=== PATIENT | male | born 1940 | race Caucasian/White ===

== ENCOUNTER 2017-01-18 07:16 | Inpatient (IN) | payer OTHER, BC ==
--- NOTE | 2017-01-18 08:05 | PDOC ---
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 Pain is continuouns, waxing and waning, sometimes 10/10, radiating from R flank to R groin. He has associated mild dysuria and frequency. He denies hematuria, f/c, rigors, pelvic pain. He visited [facility] where he had blood work and UA done, had leukocytosis of 12.5, creat 1.9 (baseline 0.9) was told its either UTI or kidney stone and dcd on Levaquin 500d x 5 days. He took 4 doses so far and has seen only transient, minimal improvement in symptoms. He denies abd pain, diarrhea, chest pain, cough, sob, h/a. He has been constipated for 4 days. 01/18/17 08:41 PCP: Dr Torsten Bledsoe Cardio: Dr Gasca Urologist: Dr Gusman (seen only once, has not come back) 01/18/17 08:49 01/18/17 08:55 01/18/17 09:27 01/18/17 10:34 01/18/17 10:49 Past History - Past Medical History Allergies/Adverse Reactions: Allergies Allergy/AdvReac Type Severity Reaction Status Date / Time No Known Allergies Allergy Verified 01/18/17 07:31 Home Medications: Ambulatory Orders Atorvastatin Ca [Lipitor] 40 mg PO HS #0 tablet 10/21/11 Enalapril/Hydrochlorothiazide [Enalapril-Hctz 10-25 mg Tablet] 1 each PO DAILY # 0 tablet 10/21/11 Glipizide [Glucotrol -] 5 mg PO BID@4257,0673 #0 tablet 10/21/11 Metformin HCl [Glucophage] 500 mg PO BIDAC #0 tablet 10/21/11 Sitagliptin Phosphate [Januvia] 100 mg PO DAILY #0 tablet 10/21/11 Diabetes: Yes (niddm) HTN: Yes - Psycho/Social/Smoking Cessation Hx Anxiety: No Suicidal Ideation: No Smoking Status: Yes Smoking History: Current some day smoker Have you smoked in the past 12 months: Yes Number of Cigarettes Smoked Daily: 0 Cigars Per Day: 1 Information on smoking cessation initiated: Yes 'Breaking Loose' booklet given: 01/18/17 Hx Alcohol Use: No Drug/Substance Use Hx: No Substance Use Type: None Review of Systems - Review of Systems Able to Perform ROS?: Yes Is the patient limited Ukrainian proficient: No Constitutional: No: Chills, Fever, Weakness HEENTM: No: Nose Congestion, Throat Pain Respiratory: No: Cough, Orthopnea, Shortness of Breath Cardiac (ROS): No: Chest Pain, Edema, Lightheadedness, Palpitations, Syncope ABD/GI: Yes: Constipated, Poor Appetite. No: Abdominal Distended, Diarrhea, Difficulty Swallowing, Nausea, Poor Fluid Intake, Rectal Bleeding, Vomiting, Abdominal cramping, Tarry Stools : Yes: Burning, Dysuria, Frequency, Flank Pain (R). No: Discharge, Incontinence, Urgency, Testicular Swelling, Lesions, Testicular Pain Musculoskeletal: No: Back Pain, Gout, Joint Pain Integumentary: No: Bruising, Rash, Sweating Neurological: No: Headache, Numbness, Paresthesia Psychiatric: No: Anxiety, Depression Endocrine: No: Change in Weight Hematologic/Lymphatic: No: Anemia, Blood Clots, Easy Bleeding, Easy Bruising All Other Systems: Reviewed and Negative *Physical Exam - Vital Signs Last Vital Signs Temp Pulse Resp BP Pulse Ox 98.5 F 78 18 113/72 100 01/18/17 07:32 01/18/17 07:32 01/18/17 07:32 01/18/17 07:32 01/18/17 07:32 - Physical Exam Comments: 01/18/17 09:55 GENERAL: NAD, AAOx3 HEENT: PERRLA EOMI Sclear anicteric CV: RRR S1S2 Pulm: CTA b/l GI, obese, soft, nontender, nondistended, no mass : R flank pain. no pelvic pain Neuro CN II-XII grossly intact Musculoskeletal: no peripheral edema 01/18/17 10:34 ED Treatment Course - LABORATORY CBC & Chemistry Diagram: 01/18/17 09:00 01/18/17 09:00 Medical Decision Making - Medical Decision Making 01/18/17 10:48 Patient presents with clinical picture most consistent with renal colic, possible UTI. studies from acute care visit on Sat consistent with ARTI, possibly post renal, obstructive Bedside US R kidney shows large fluid filled cyst with no vascular flow. CBC diff, cmp, ua, urine culture, spiral CT, 1L NS IVF, morphine Labs show no leukocytosis with mild eosinophilia, AKA creat 1.8 similar to sat result, UA consistent with infection or inflammation Spiral CT shown staghorn calculus in L kidney, hydronephrosis in L kidney, hypodensities in both kidneys. Hypodenes mass in pancrease tail. 8 mm stone in R distal ureter. b/l perirenal stranding, mildly thickened bladder wall start zosyn IV Admit to hospitalist 01/18/17 10:49 01/18/17 11:06 *DC/Admit/Observation/Transfer Diagnosis at time of Disposition: Obstruction of kidney, ARTI (acute kidney injury) UTI (urinary tract infection) Qualifiers: Urinary tract infection type: site unspecified Hematuria presence: without hematuria Qualified Code(s): N39.0 - Urinary tract infection, site not specified Abdominal mass Qualifiers: Abdominal location: other location Qualified Code(s): R19.09 - Other intra- abdominal and pelvic swelling, mass and lump - Discharge Dispostion Admit: Yes - Referrals Referrals: Torsten Bledsoe MD [Primary Care Provider] -
[2017-01-18] MEDS ORDERED: KETOROLAC TROMETHAMINE 10 MG TABLET PO ONE (08:48)
[2017-01-18] MEDS ORDERED: TAMSULOSIN HCL 0.4 MG CAP.ER.24H (FP) PO ONE (08:55)
[2017-01-18] MEDS ORDERED: SODIUM CHLORIDE 1,000 ML IV STA (08:56)
[2017-01-18] MEDS ORDERED: morphine CARPU-JECT 2 MG/1 ML DISP.SYRIN IVPUSH ONE (09:05)
[2017-01-18 09:08] LABS: BASOPHIL 0.6 % (0-2.0); EOSINOPHIL 5.4 % (0-4.5); MCH 29.8 pg (25.7-33.7); MCHC 33.7 g/dl (32.0-35.9); MEAN CELL VOLUME 88.6 fl (80-96); MEAN PLT VOLUME 7.3 fl (7.5-11.1); PLATELET COUNT 211 K/MM3 (134-434); RDW 13.8 % (11.9-15.9); WHITE BLOOD COUNT 7.9 K/mm3 (4.0-10.0)
[2017-01-18] MEDS ORDERED: morphine CARPU-JECT 2 MG/1 ML DISP.SYRIN ONE (09:08)
--- NOTE | 2017-01-18 09:10 | PDOC ---
Attending Attestation - Resident Resident Name: Vera Rivas - ED Attending Attestation I have performed the following: I have examined & evaluated the patient, The case was reviewed & discussed with the resident, I agree w/resident's findings & plan, Exceptions are as noted - HPI HPI: 01/18/17 09:08 76-year-old male with history of hypertension, hyperlipidemia, diabetes, stroke , coronary disease, kidney stones presents with right flank pain for 6 days. Patient reports is intermittent and causes discomfort. Has been complaining about some mild frequency and dysuria. Went to an urgent care 2 days ago and had bloods drawn which demonstrated white count 12 and acute renal sufficiency of 1.9. Denies fevers. Came to the ED for further evaluation. - Physicial Exam PE: 01/18/17 09:09 GENERAL: Awake, alert, and fully oriented, in no acute distress. HEAD: No signs of trauma EYES: PERRLA, EOMI, sclera anicteric, conjunctiva clear ENT: Auricles normal inspection, hearing grossly normal, nares patent, oropharynx clear without exudates. NECK: Normal ROM, supple, no lymphadenopathy, JVD, or masses LUNGS: Breath sounds equal, clear to auscultation bilaterally. No wheezes, and no crackles HEART: Regular rate and rhythm, normal S1 and S2, no murmurs, rubs or gallops ABDOMEN: Soft, nontender, normoactive bowel sounds. No guarding, no rebound. No masses Mild R sided CVA tenderness. EXTREMITIES: Normal range of motion, no edema. No clubbing or cyanosis. No cords, erythema, or tenderness NEUROLOGICAL: Cranial nerves II through XII grossly intact. Normal speech, normal gait SKIN: Warm, Dry, normal turgor, no rashes or lesions noted. - Medical Decision Making 01/18/17 09:09 Differential includes renal colic, pyelonephritis. We'll obtain labs, urinalysis. We'll need to touch base with patient's primary care physician in regards to patient's acute renal insufficiency. Give IV hydration and reassess. <Ruperto Casarez - Last Filed: 01/18/17 09:46> - Medical Decision Making 01/18/17 11:15 Case discussed with Urologist, Dr. Gusman. <Rhiannon Adan - Last Filed: 01/18/17 11:15> Heart Score/ECG Review #1 ECG reviewed & interpreted by me at: 09:45 01/18/17 09:50 NSR 70, LAFB, LVH, no std/jose, QTC 442 msec <Ruperto Casarez - Last Filed: 01/18/17 09:46>
[2017-01-18 09:23] LABS: URINE APPEARANCE TURBID; URINE BILIRUBIN NEGATIVE (NEGATIVE); URINE COLOR YELLOW; URINE GLUCOSE (UA) NEGATIVE (NEGATIVE); URINE KETONE NEGATIVE (NEGATIVE); URINE NITRITE NEGATIVE (NEGATIVE); URINE UROBILINOGEN NEGATIVE E.U./dl (0.2-1.0)
[2017-01-18 09:27] LABS: URINE BLOOD 1+ (NEGATIVE); URINE LEUK ESTERASE 2+ (NEGATIVE); URINE PROTEIN 2+ (NEGATIVE)
[2017-01-18 09:28] LABS: URINE BACTERIA FEW /hpf (NONE SEEN); URINE RBC 18 /hpf (0-3); URINE WBC 3327 /hpf (3-5)
[2017-01-18 09:32] LABS: ALBUMIN 2.8 g/dl (3.4-5.0); ANION GAP 12 (8-16); CALCIUM 8.8 mg/dL (8.5-10.1); CO2 22 mmol/L (21-32); CREATININE 1.8 mg/dL (0.7-1.3); GLUCOSE,RANDOM 108 mg/dL (74-106); SGOT/AST 32 U/L (15-37); SGPT/ALT 48 U/L (12-78)
[2017-01-18 09:33] LABS: ALK PHOS 115 U/L (45-117); BILIRUBIN,TOTAL 0.5 mg/dL (0.2-1.0); TOT PROT 6.8 g/dl (6.4-8.2)
[2017-01-18] MEDS ORDERED: PIPERACILLIN/TAZOB 3.375 GM 3.375 GM in DEXTROSE 5%-WATER - 50 ML IVPB ONE (10:27)
--- NOTE | 2017-01-18 10:52 | PDOC ---
*Physical Exam - Vital Signs Last Vital Signs Temp Pulse Resp BP Pulse Ox 98.5 F 78 18 113/72 100 01/18/17 07:32 01/18/17 07:32 01/18/17 07:32 01/18/17 07:32 01/18/17 07:32 Heart Score/ECG Review #1 ECG reviewed & interpreted by me at: 09:45 01/18/17 11:52 NSR 70, LAFB, +LVH, no std/jose, QRS 116 msec, QTC 442 msec ED Treatment Course - LABORATORY CBC & Chemistry Diagram: 01/18/17 09:00 01/18/17 09:00 - ADDITIONAL ORDERS Additional order review: Laboratory Results 01/18/17 01/18/17 09:00 09:00 Sodium 141 Potassium 4.1 Chloride 107 Carbon Dioxide 22 Anion Gap 12 BUN 34 H D Creatinine 1.8 H D Creat Clearance w eGFR 36.97 Random Glucose 108 H D Calcium 8.8 Total Bilirubin 0.5 D AST 32 D ALT 48 Alkaline Phosphatase 115 D Total Protein 6.8 Albumin 2.8 L D Urine Color Yellow Urine Appearance Turbid Urine pH 5.0 Urine Protein 2+ H Urine Glucose (UA) Negative Urine Ketones Negative Urine Blood 1+ H Urine Nitrite Negative Urine Bilirubin Negative Urine Urobilinogen Negative Ur Leukocyte Esterase 2+ H Urine RBC 18 Urine WBC 3327 Urine Bacteria Few 01/18/17 09:00 RBC 4.17 MCV 88.6 MCHC 33.7 RDW 13.8 MPV 7.3 L D Neutrophils % 62.0 Lymphocytes % 23.5 D Monocytes % 8.5 Eosinophils % 5.4 H Basophils % 0.6 - Medications Given in the ED: ED Medications Discontinued Medications Generic Name Dose Route Start Last Admin Trade Name Freq PRN Reason Stop Dose Admin Sodium Chloride 1,000 mls @ 1,000 mls/hr 01/18/17 08:56 01/18/17 09:14 Normal Saline - IV 01/18/17 09:55 1,000 mls/hr ASDIR STA Administration Ketorolac Tromethamine 10 mg 01/18/17 08:48 01/18/17 09:08 Toradol PO 01/18/17 08:49 Not Given ONCE ONE Morphine Sulfate 2 mg 01/18/17 09:05 01/18/17 09:14 Morphine Injection - IVPUSH 01/18/17 09:06 2 mg ONCE ONE Administration Tamsulosin HCl 0.8 mg 01/18/17 08:55 01/18/17 09:08 Flomax - PO 01/18/17 08:56 Not Given ONCE ONE Medical Decision Making - Medical Decision Making 01/18/17 10:53 CT scan shows: Hydronephrosis and calculi. Hypodense mass concerning for malignancy. CBC, BMP 01/18/17 09:00 01/18/17 09:00 CMP Sodium 141 mmol/L (136-145) 01/18/17 09:00 Potassium 4.1 mmol/L (3.5-5.1) 01/18/17 09:00 Chloride 107 mmol/L (98-107) 01/18/17 09:00 Carbon Dioxide 22 mmol/L (21-32) 01/18/17 09:00 Anion Gap 12 (8-16) 01/18/17 09:00 BUN 34 mg/dL (7-18) H D 01/18/17 09:00 Creatinine 1.8 mg/dL (0.7-1.3) H D 01/18/17 09:00 Creat Clearance w eGFR 36.97 (>60) 01/18/17 09:00 Random Glucose 108 mg/dL (74-106) H D 01/18/17 09:00 Calcium 8.8 mg/dL (8.5-10.1) 01/18/17 09:00 Total Bilirubin 0.5 mg/dL (0.2-1.0) D 01/18/17 09:00 AST 32 U/L (15-37) D 01/18/17 09:00 ALT 48 U/L (12-78) 01/18/17 09:00 Alkaline Phosphatase 115 U/L (45-117) D 01/18/17 09:00 Total Protein 6.8 g/dl (6.4-8.2) 01/18/17 09:00 Albumin 2.8 g/dl (3.4-5.0) L D 01/18/17 09:00 Urine Test Results Urine Color Yellow 01/18/17 09:00 Urine Appearance Turbid 01/18/17 09:00 Urine pH 5.0 (5.0-8.0) 01/18/17 09:00 Urine Protein 2+ (NEGATIVE) H 01/18/17 09:00 Urine Glucose (UA) Negative (NEGATIVE) 01/18/17 09:00 Urine Ketones Negative (NEGATIVE) 01/18/17 09:00 Urine Blood 1+ (NEGATIVE) H 01/18/17 09:00 Urine Nitrite Negative (NEGATIVE) 01/18/17 09:00 Urine Bilirubin Negative (NEGATIVE) 01/18/17 09:00 Ur Leukocyte Esterase 2+ (NEGATIVE) H 01/18/17 09:00 Urine RBC 18 /hpf (0-3) 01/18/17 09:00 Urine WBC 3327 /hpf (3-5) 01/18/17 09:00 Urine Bacteria Few /hpf (NONE SEEN) 01/18/17 09:00 Findings are concerning for obstructed infected kidney stone. Zosyn ordered. Dr. Naseem artis. Pt will need to have a cancer workup. Case discussed with caity. Admitted under med/surg admission. *DC/Admit/Observation/Transfer Diagnosis at time of Disposition: Obstruction of kidney, ARTI (acute kidney injury) UTI (urinary tract infection) Qualifiers: Urinary tract infection type: site unspecified Hematuria presence: without hematuria Qualified Code(s): N39.0 - Urinary tract infection, site not specified Abdominal mass Qualifiers: Abdominal location: other location Qualified Code(s): R19.09 - Other intra- abdominal and pelvic swelling, mass and lump - Discharge Dispostion Admit: Yes - Referrals Referrals: Torsten Bledsoe MD [Primary Care Provider] - - Patient Instructions - Post Discharge Activity
[2017-01-18] MEDS ORDERED: PIPERACILLIN/TAZOB 3.375 GM 50 ML IVPB ONE (11:41)
[2017-01-18] MEDS ORDERED: morphine CARPU-JECT 2 MG/1 ML DISP.SYRIN IVPUSH PRN (12:10)
[2017-01-18] MEDS: HEPARIN NA (PORCINE) 5,000 UNITS/ML 1ML VIAL SQ SCH ×2 (12:38→22:51)
[2017-01-18] MEDS ORDERED: HEPARIN NA (PORCINE) 5,000 UNITS/ML 1ML VIAL ONE (12:41)
--- NOTE | 2017-01-18 13:49 | HP ---
Admitting History and Physical - Primary Care Physician PCP: Torsten Bledsoe - Admission Chief Complaint: R flank pain History of Present Illness: This 76 year old male with PMH of nephrolitiasis (1979, possibly staghorn, untreated), HTN, DM II, CAD, CVA presented to the ED with R flank pain for ~ one week. He stated he has noted incontinence and going often. Recently, seen at an [facility], he was diagnosed with UTI vs kidney stone, given levaquin for which he took 4 days work and minimal relief of symptoms. 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 Cardiovascular: Yes: CAD, HTN Renal/: Yes: Renal Calculi Endocrine: Yes: Diabetes Mellitus - Smoking History Smoking history: Current some day smoker Have you smoked in the past 12 months: Yes Aproximately how many cigarettes per day: 0 - Alcohol/Substance Use Hx Alcohol Use: No - Social History Usual Living Arrangement: Yes: With Spouse ADL: Independent Home Medications - Allergies Allergies/Adverse Reactions: Allergies Allergy/AdvReac Type Severity Reaction Status Date / Time No Known Allergies Allergy Verified 01/18/17 07:31 - Home Medications Home Medications: Ambulatory Orders Aspirin [ASA -] 81 mg PO DAILY 01/18/17 Atorvastatin Ca [Lipitor] 20 mg PO DAILY 01/18/17 Glipizide [Glipizide ER] 5 mg PO DAILY 01/18/17 Lisinopril [Prinivil] 0 mg PO DAILY 01/18/17 Metformin HCl [Metformin HCl ER] 500 mg PO BID 01/18/17 Metoprolol Succinate [Toprol Xl] 12.5 mg PO DAILY 01/18/17 Review of Systems - Review of Systems Constitutional: reports: No Symptoms Eyes: reports: No Symptoms HENT: reports: No Symptoms Neck: reports: No Symptoms Cardiovascular: reports: No Symptoms Respiratory: reports: No Symptoms Gastrointestinal: reports: No Symptoms Genitourinary: reports: Dysuria, Frequency, Incontinence Musculoskeletal: reports: No Symptoms Integumentary: reports: No Symptoms Neurological: reports: No Symptoms Endocrine: reports: No Symptoms Hematology/Lymphatic: reports: No Symptoms Psychiatric: reports: No Symptoms Physical Examination Vital Signs: Vital Signs Temperature 98.5 F 01/18/17 07:32 Pulse Rate 78 01/18/17 11:51 Respiratory Rate 20 01/18/17 11:51 Blood Pressure 121/74 01/18/17 11:51 O2 Sat by Pulse Oximetry (%) 99 01/18/17 11:51 Constitutional: Yes: Well Nourished Eyes: Yes: WNL HENT: Yes: Atraumatic Neck: Yes: Supple Cardiovascular: Yes: Regular Rate and Rhythm, S1, S2 Respiratory: Yes: CTA Bilaterally Gastrointestinal: Yes: Normal Bowel Sounds, Soft, Abdomen, Obese Renal/: Yes: CVA Tenderness - Right, Incontinence Musculoskeletal: Yes: WNL Extremities: Yes: WNL Edema: No Peripheral Pulses WNL: Yes Neurological: Yes: Alert, Oriented, Cran Nerves II-XII Intact Psychiatric: Yes: WNL Imaging - Results Cat Scan: Report Reviewed Problem List - Problems (1) ARTI (acute kidney injury) Code(s): N17.9 - ACUTE KIDNEY FAILURE, UNSPECIFIED (2) UTI (urinary tract infection) Code(s): N39.0 - URINARY TRACT INFECTION, SITE NOT SPECIFIED Qualifiers: Urinary tract infection type: site unspecified Hematuria presence: without hematuria Qualified Code(s): N39.0 - Urinary tract infection, site not specified (3) Nephrolithiasis Code(s): N20.0 - CALCULUS OF KIDNEY (4) Lesion of pancreas Code(s): K86.9 - DISEASE OF PANCREAS, UNSPECIFIED (5) Renal mass, left Code(s): N28.89 - OTHER SPECIFIED DISORDERS OF KIDNEY AND URETER (6) HTN (hypertension) Code(s): I10 - ESSENTIAL (PRIMARY) HYPERTENSION (7) Diabetes mellitus Code(s): E11.9 - TYPE 2 DIABETES MELLITUS WITHOUT COMPLICATIONS (8) CAD (coronary artery disease) Code(s): I25.10 - ATHSCL HEART DISEASE OF [place] CORONARY ARTERY W/O ANG PCTRS Assessment/Plan Assessment: 76 year old male admitted with right flank pain and UTI, found to have renal mass and pancreatic tail lesion Plan: 1. UTI - Urine cx pending - Failed levaquin - Zosyn x1 dose in ED - Continue ceftriaxone daily, await sensitivities 2. ARTI - Possible due to obstructing L renal mass vs infection - Hold nephrotoxic agents, NSAIDS etc - Hold enalapril/HCTZ - Trial gentle fluids - Urine studies - Nephrology consulted 3. L renal mass - Obtain Renal/ blader US - Urology consulted 4. L Nephrolithiasis with hydro - See above - Cont fluids, will likely need intervention 5. Pancreatic tail lesion - Will need Abd MRI w/wo contrast with MRCP, may not be able to give contrast, will d/w renal and IR - CEA, Ca 19-9 - GI consulted 6. HTN - Hold HCTZ/enalapril - Give Labetalol as needed 7. Constipation - Start bowel regimen 8. PPx - DVT: heparin sq - Renal diet Visit type - Emergency Visit Emergency Visit: Yes ED Registration Date: 01/18/17 Care time: The patient presented to the Emergency Department on the above date and was hospitalized for further evaluation of their emergent condition. - New Patient This patient is new to me today: Yes Date on this admission: 01/19/17 - Critical Care Critical Care patient: No
--- NOTE | 2017-01-18 14:02 | EKG ---
Test Reason : Blood Pressure : / mmHG Vent. Rate : 070 BPM Atrial Rate : 070 BPM P-R Int : 198 ms QRS Dur : 116 ms QT Int : 410 ms P-R-T Axes : 075 -52 004 degrees QTc Int : 442 ms NORMAL SINUS RHYTHM LEFT ANTERIOR FASCICULAR BLOCK LEFT VENTRICULAR HYPERTROPHY WITH QRS WIDENING ABNORMAL ECG WHEN COMPARED WITH ECG OF 18-OCT-2011 09:34, PREMATURE VENTRICULAR COMPLEXES ARE NO LONGER PRESENT T WAVE VARIATION Confirmed by DAISY BRYANT MD ([id number]) on 01/18/2017 2:01:58 PM Referred By: Confirmed By:DAISY BRYANT MD
[2017-01-18] MEDS ORDERED: oxyCODONE HCL 5 MG TABLET ONE (14:05)
[2017-01-18] MEDS: oxyCODONE HCL 5 MG TABLET PO PRN (14:08)
[2017-01-18] MEDS: POLYETHYLENE GLYCOL 3350 119 GM BTL PO SCH (14:08)
--- NOTE | 2017-01-18 14:52 | CONSULT ---
Consult Consult Specialty:: Nephrology Reason for Consultation:: ARTI - History of Present Illness Chief Complaint: right flank pain History of Present Illness: Pt is a 76 year old gentleman with history of DM, HTN, CAD , CVA and nephrolithiasis who presents to the ER complaining of worsening right flank pain. He says that he went to urgent care where he was given antibiotics. The discomfort however did not improve. He denies hematuria. He complains of a bad odor from the urine. He denies fevers or chills. He was found to be in ARTI and I was called to evaluate him. He denies history of kidney disease. 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 Cardio/Vascular: Yes: CAD, HTN Renal/: Yes: Renal Calculi Endocrine: Yes: Diabetes Mellitus - Alcohol/Substance Use Hx Alcohol Use: No - Smoking History Smoking history: Current some day smoker Have you smoked in the past 12 months: Yes Aproximately how many cigarettes per day: 0 - Social History ADL: Independent Home Medications - Allergies Allergies/Adverse Reactions: Allergies Allergy/AdvReac Type Severity Reaction Status Date / Time No Known Allergies Allergy Verified 01/18/17 07:31 - Home Medications Home Medications: Ambulatory Orders Atorvastatin Ca [Lipitor] 40 mg PO HS #0 tablet 10/21/11 Enalapril/Hydrochlorothiazide [Enalapril-Hctz 10-25 mg Tablet] 1 each PO DAILY # 0 tablet 10/21/11 Glipizide [Glucotrol -] 5 mg PO BID@1583,7252 #0 tablet 10/21/11 Metformin HCl [Glucophage] 500 mg PO BIDAC #0 tablet 10/21/11 Sitagliptin Phosphate [Januvia] 100 mg PO DAILY #0 tablet 10/21/11 Family Disease History - Family Disease History Family History: Denies Review of Systems - Review of Systems Constitutional: denies: Chills, Fever Eyes: reports: No Symptoms HENT: reports: No Symptoms Neck: reports: No Symptoms Cardiovascular: reports: No Symptoms Respiratory: reports: No Symptoms Gastrointestinal: reports: No Symptoms Genitourinary: reports: Flank Pain Neurological: reports: No Symptoms Endocrine: reports: No Symptoms Hematology/Lymphatic: reports: No Symptoms Psychiatric: reports: No Symptoms Physical Exam Vital Signs: Vital Signs Temperature 98.1 F 01/18/17 14:45 Pulse Rate 67 01/18/17 14:45 Respiratory Rate 18 01/18/17 14:45 Blood Pressure 126/75 01/18/17 14:45 O2 Sat by Pulse Oximetry (%) 95 01/18/17 14:45 Constitutional: Yes: Calm Eyes: Yes: Conjunctiva Clear HENT: Yes: Atraumatic Neck: Yes: Supple Cardiovascular: Yes: S1, S2 Respiratory: Yes: CTA Bilaterally Gastrointestinal: Yes: Soft, Abdomen, Obese Renal/: Yes: WNL Musculoskeletal: Yes: WNL Edema: No Neurological: Yes: Oriented Psychiatric: Yes: Oriented Labs: Laboratory Tests 10/18/11 10/19/11 01/18/17 03:20 17:30 09:00 WBC 7.9 Hgb 12.5 D Plt Count 211 Sodium Potassium Chloride Carbon Dioxide Anion Gap BUN Creatinine 1.2 0.9 D Creat Clearance w eGFR Random Glucose Albumin Urine Color Urine Appearance Urine pH Ur Specific [place] Urine Protein Urine Glucose (UA) Urine Ketones Urine Blood Urine Nitrite Urine Bilirubin Urine Urobilinogen Ur Leukocyte Esterase Urine RBC Urine WBC Urine Bacteria 01/18/17 01/18/17 09:00 09:00 WBC Hgb Plt Count Sodium 141 Potassium 4.1 Chloride 107 Carbon Dioxide 22 Anion Gap 12 BUN 34 H D Creatinine 1.8 H D Creat Clearance w eGFR 36.97 Random Glucose 108 H D Albumin 2.8 L D Urine Color Yellow Urine Appearance Turbid Urine pH 5.0 Ur Specific [place] 1.020 Urine Protein 2+ H Urine Glucose (UA) Negative Urine Ketones Negative Urine Blood 1+ H Urine Nitrite Negative Urine Bilirubin Negative Urine Urobilinogen Negative Ur Leukocyte Esterase 2+ H Urine RBC 18 Urine WBC 3327 Urine Bacteria Few Imaging - Results Cat Scan: Report Reviewed (left hydronephrosis, there is a lesion in the tail of the pancreas) Problem List - Problems (1) ARTI (acute kidney injury) Code(s): N17.9 - ACUTE KIDNEY FAILURE, UNSPECIFIED (2) Abdominal mass Code(s): R19.00 - INTRA-ABD AND PELVIC SWELLING, MASS AND LUMP, UNSP SITE Qualifiers: Abdominal location: other location Qualified Code(s): R19.09 - Other intra-abdominal and pelvic swelling, mass and lump (3) CAD (coronary artery disease) Code(s): I25.10 - ATHSCL HEART DISEASE OF [place] CORONARY ARTERY W/O ANG PCTRS (4) Diabetes mellitus Code(s): E11.9 - TYPE 2 DIABETES MELLITUS WITHOUT COMPLICATIONS (5) HTN (hypertension) Code(s): I10 - ESSENTIAL (PRIMARY) HYPERTENSION (6) Lesion of pancreas Code(s): K86.9 - DISEASE OF PANCREAS, UNSPECIFIED (7) Nephrolithiasis Code(s): N20.0 - CALCULUS OF KIDNEY (8) Obstruction of kidney Code(s): N28.89 - OTHER SPECIFIED DISORDERS OF KIDNEY AND URETER (9) UTI (urinary tract infection) Code(s): N39.0 - URINARY TRACT INFECTION, SITE NOT SPECIFIED Qualifiers: Urinary tract infection type: site unspecified Hematuria presence: without hematuria Qualified Code(s): N39.0 - Urinary tract infection, site not specified Assessment/Plan Current Medications Generic Name Dose Route Start Last Admin Trade Name Freq PRN Reason Stop Dose Admin Docusate Sodium 100 mg 01/18/17 22:00 Colace - PO BID [facility] Heparin Sodium (Porcine) 5,000 unit 01/18/17 12:15 01/18/17 12:38 Heparin - SQ 5,000 unit BID [facility] Administration Ceftriaxone Sodium 50 mls @ 100 mls/hr 01/19/17 10:00 Rocephin 1gm Ivpb (Pre-Docked) IVPB DAILY [facility] Insulin Aspart 1 vial 01/18/17 16:30 Novolog Vial Sliding Scale - SQ ACHS [facility] Protocol Morphine Sulfate 2 mg 01/18/17 12:10 Morphine Injection - IVPUSH Q4H PRN PAIN Oxycodone HCl 5 mg 01/18/17 12:15 01/18/17 14:08 Roxicodone - PO 5 mg Q4H PRN Administration PAIN Polyethylene Glycol 17 gm 01/18/17 14:00 01/18/17 14:08 Miralax (For Daily Use) - PO 17 gm DAILY [facility] Administration Senna 1 tab 01/18/17 22:00 Senna - PO HS [facility] Impression 1. ARTI 2. pancreatic mass 3. nephrolithiasis 4. HTN 5. DM 6. left hydronephrosis 7. CAD 8. 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
[2017-01-18] MEDS: INSULIN SLIDING SCALE (NOVOLOG) 1 VIAL SQ SCH ×2 (17:36→22:51)
[2017-01-18] MEDS: SODIUM CHLORIDE 0.45% 1,000 ML IV SCH (17:37)
[2017-01-18] MEDS: DOCUSATE SODIUM 100 MG CAPSULE (FP) PO SCH (22:51)
[2017-01-18] MEDS: SENNOSIDES 8.6MG TABLET (FP) PO SCH (22:52)
[2017-01-19] MEDS: INSULIN SLIDING SCALE (NOVOLOG) 1 VIAL SQ SCH ×4 (06:29→21:09)
[2017-01-19] MEDS: SODIUM CHLORIDE 0.45% 1,000 ML IV SCH (06:38)
[2017-01-19 06:41] LABS: BASOPHIL 0.5 % (0-2.0); EOSINOPHIL 4.7 % (0-4.5); MCH 29.3 pg (25.7-33.7); MCHC 33.1 g/dl (32.0-35.9); MEAN CELL VOLUME 88.5 fl (80-96); NEUTROPHILS 60.2 % (42.8-82.8); PLATELET COUNT 229 K/MM3 (134-434); RDW 14.3 % (11.9-15.9); WHITE BLOOD COUNT 8.6 K/mm3 (4.0-10.0)
[2017-01-19 07:19] LABS: ALBUMIN 2.8 g/dl (3.4-5.0); ALK PHOS 112 U/L (45-117); ANION GAP 8 (8-16); BILIRUBIN,TOTAL 0.6 mg/dL (0.2-1.0); CO2 23 mmol/L (21-32); CREATININE 1.5 mg/dL (0.7-1.3); GLUCOSE,RANDOM 120 mg/dL (74-106); SGOT/AST 33 U/L (15-37); SGPT/ALT 45 U/L (12-78); TOT PROT 6.7 g/dl (6.4-8.2)
[2017-01-19] MEDS: DOCUSATE SODIUM 100 MG CAPSULE (FP) PO SCH ×2 (10:02→21:09)
[2017-01-19] MEDS: HEPARIN NA (PORCINE) 5,000 UNITS/ML 1ML VIAL SQ SCH ×2 (10:02→21:08)
[2017-01-19] MEDS: CEFTRIAXONE 50 ML IVPB SCH (10:16)
[2017-01-19] MEDS: POLYETHYLENE GLYCOL 3350 119 GM BTL PO SCH (10:17)
--- NOTE | 2017-01-19 14:14 | CON.GI ---
Consult Consult Specialty:: GI Referred by:: hospitalist Reason for Consultation:: Abnormal Finding of Pancreas on CT scan - History of Present Illness Chief Complaint: I had pain on my right side History of Present Illness: 76M admitted through [facility] ER for eval of right flank pain. He is being treated for UTI and being evaluated by urology and nephrology. He was noted to have renal insufficiency and non-contrast CT scan of the abdomen performed upon admission revealed an incidental 2.3 x 1.4cm hypodense lesion in the anterior pancreatic tail with mild lobularity. He denies any focal GI complaints / unintentional weight loss. He is followed by Dr. Ortiz Wall given Mr. Roman's history of multiple colon polyps (last colonoscopy being 04/17). 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 Cardio/Vascular: Yes: CAD, HTN Renal/: Yes: Renal Inusuff, Renal Calculi Endocrine: Yes: Diabetes Mellitus - Past Surgical History Past Surgical History: Yes: None - Alcohol/Substance Use Hx Alcohol Use: Yes (in past) History of Substance Use: reports: None - Smoking History Smoking history: Former smoker Have you smoked in the past 12 months: No Aproximately how many cigarettes per day: 0 - Social History Usual Living Arrangement: With Spouse ADL: Independent Occupation: Retired: last worked for [employer] Place of : [facility] History of Recent Travel: No Home Medications - Allergies Allergies/Adverse Reactions: Allergies Allergy/AdvReac Type Severity Reaction Status Date / Time No Known Allergies Allergy Verified 01/18/17 07:31 - Home Medications Home Medications: Ambulatory Orders Aspirin [ASA -] 81 mg PO DAILY 01/18/17 Atorvastatin Ca [Lipitor] 20 mg PO DAILY 01/18/17 Glipizide [Glipizide ER] 5 mg PO DAILY 01/18/17 Lisinopril [Prinivil] 0 mg PO DAILY 01/18/17 Metformin HCl [Metformin HCl ER] 500 mg PO BID 01/18/17 Metoprolol Succinate [Toprol Xl] 12.5 mg PO DAILY 01/18/17 Family Disease History - Family Disease History Family Disease History: Other: Father ( age 33 from ICH), Mother ( 97: CHF), Brother (1 : 50: Alcoholic cirrhosis 1 : 67: NE), Sister (: 60 : Rectal cancer) Review of Systems - Review of Systems Constitutional: denies: Chills Cardiovascular: denies: Chest Pain Respiratory: denies: SOB Gastrointestinal: denies: Abdominal Pain, Diarrhea, Melena, Rectal Bleeding Physical Exam-GI Vital Signs: Vital Signs Temperature 97.8 F 01/19/17 13:00 Pulse Rate 97 H 01/19/17 13:00 Respiratory Rate 01/19/17 13:00 Blood Pressure 148/81 01/19/17 13:00 O2 Sat by Pulse Oximetry (%) 95 01/18/17 14:45 Constitutional: Yes: Calm Eyes: No: Sclera Icterus Cardiovascular: Yes: Regular Rate and Rhythm. No: Murmur Respiratory: Yes: CTA Bilaterally Gastrointestinal Inspection: No: Distention (large pannus), Scars ...Auscultate: Yes: Normoactive Bowel Sounds ...Palpate: No: Hepatomegaly, Splenomegaly, Tenderness ...Percussion: No: Tympanitic ...Rectal Exam: Yes: Other (Light brown stool, guaiac negative, 2+ prostate) Edema: No (No LE edema) Labs: CBC, BMP 01/19/17 05:35 01/19/17 05:35 Imaging - Results Cat Scan: Report Reviewed, Image Reviewed Problem List - Problems (1) Pancreatic mass Assessment/Plan: Of unclear etiology as of yet. This was discussed with Mr. Roman and his who was present at bedside, including the possibility that this can be a cancerous process. ideally he will need contrast imaging of the pancreas when his renal function permits. We also discussed outpatient referral for EUS as well and explained that he can follow-up with Dr. Wall as an outpatient when acute issues are resolved. For now, I have ordered non contrast MRI/MRCP of the abdomen Follow-up CA 19-9 Code(s): K86.9 - DISEASE OF PANCREAS, UNSPECIFIED
--- NOTE | 2017-01-19 15:24 | PN ---
Physical Exam: SUBJECTIVE: Patient seen and examined. He reports feeling better, back pain is less. He denies fever, chills. at bedside. Discussed findings on CT and renal US. OBJECTIVE: Vital Signs Period Temp Pulse Resp BP Sys/[place] Pulse Ox Last 24 Hr 97.8 F-98.4 F 74-97 18-20 128-148/67-81 PE Neuro: alert, awake, cn 2-12intact Pulm: CTAB CV: s1 s2 rrr no mrg Abd: obese abd, s nt nd +bs : r flank pain less Ext:warm, no le edema Laboratory Results - last 24 hr 01/18/17 01/18/17 01/19/17 15:56 17:10 05:35 WBC 8.6 RBC 4.26 Hgb 12.5 Hct 37.7 MCV 88.5 MCHC 33.1 RDW 14.3 Plt Count 229 MPV 8.0 Neutrophils % 60.2 Lymphocytes % 27.6 Monocytes % 7.0 Eosinophils % 4.7 H Basophils % 0.5 Sodium Potassium Chloride Carbon Dioxide Anion Gap BUN Creatinine Creat Clearance w eGFR POC Glucometer [id number] Random Glucose Calcium Total Bilirubin AST ALT Alkaline Phosphatase Total Protein Albumin Ur Random Sodium 60 Ur Random Potassium 18.1 Ur Random Chloride 55 Urine Creatinine 63.0 01/19/17 01/19/17 01/19/17 05:35 05:40 11:52 WBC RBC Hgb Hct MCV MCHC RDW Plt Count MPV Neutrophils % Lymphocytes % Monocytes % Eosinophils % Basophils % Sodium 141 Potassium 4.8 Chloride 110 H Carbon Dioxide 23 Anion Gap 8 BUN 26 H D Creatinine 1.5 H Creat Clearance w eGFR 45.62 POC Glucometer 115 181 Random Glucose 120 H Calcium 9.0 Total Bilirubin 0.6 AST 33 ALT 45 Alkaline Phosphatase 112 Total Protein 6.7 Albumin 2.8 L Ur Random Sodium Ur Random Potassium Ur Random Chloride Urine Creatinine Active Medications Generic Name Dose Route Start Last Admin Trade Name Freq PRN Reason Stop Dose Admin Docusate Sodium 100 mg 01/18/17 22:00 01/19/17 10:02 Colace - PO Not Given BID [facility] Heparin Sodium (Porcine) 5,000 unit 01/18/17 12:15 01/19/17 10:02 Heparin - SQ Not Given BID [facility] Ceftriaxone Sodium 50 mls @ 100 mls/hr 01/19/17 10:00 01/19/17 10:16 Rocephin 1gm Ivpb (Pre-Docked) IVPB 100 mls/hr DAILY [facility] Administration Sodium Chloride 1,000 mls @ 42 mls/hr 01/18/17 15:15 01/19/17 06:38 1/2 Normal Saline IV 42 mls/hr ASDIR [facility] Administration Insulin Aspart 1 vial 01/18/17 16:30 01/19/17 11:55 Novolog Vial Sliding Scale - SQ 2 units ACHS [facility] Administration Protocol Morphine Sulfate 2 mg 01/18/17 12:10 Morphine Injection - IVPUSH Q4H PRN PAIN Oxycodone HCl 5 mg 01/18/17 12:15 01/18/17 14:08 Roxicodone - PO 5 mg Q4H PRN Administration PAIN Polyethylene Glycol 17 gm 01/18/17 14:00 01/19/17 10:17 Miralax (For Daily Use) - PO Not Given DAILY [facility] Senna 1 tab 01/18/17 22:00 01/18/17 22:52 Senna - PO 1 tab HS [facility] Administration Microbiology 01/18/17 09:00 Urine Culture - Final Urine - Urine Clean Catch NO GROWTH OBTAINED Assessment: 76 year old male admitted with right flank pain and UTI, found to have renal mass and pancreatic tail lesion Plan: 1. UTI - Urine cx no growth - Ceftriaxone daily (day 2) 2. ARTI - Cr improving - Hold nephrotoxic agents, NSAIDS etc - Hold enalapril/HCTZ - Maintain gentle fluid - Urine studies noted 3. L renal mass - Renal us show mild irregularity thickening of urinary bladder ?obstruction - Enlarged prostate - Start flomax - Awaiting urology consult 4. L Nephrolithiasis with hydro - x2 non obstructing stones w/ mild hydro - IVF as above 5. Pancreatic tail lesion - Abd MRI wo contrast with MRCP - CEA, Ca 19-9 pending - GI following 6. HTN - Hold HCTZ/enalapril - Give Labetalol as needed 7. Constipation - Bowel regimen 8. PPx - DVT: heparin sq - Renal diet Problem List - Problems (1) ARTI (acute kidney injury) Code(s): N17.9 - ACUTE KIDNEY FAILURE, UNSPECIFIED (2) UTI (urinary tract infection) Code(s): N39.0 - URINARY TRACT INFECTION, SITE NOT SPECIFIED Qualifiers: Urinary tract infection type: site unspecified Hematuria presence: without hematuria Qualified Code(s): N39.0 - Urinary tract infection, site not specified (3) Nephrolithiasis Code(s): N20.0 - CALCULUS OF KIDNEY (4) Lesion of pancreas Code(s): K86.9 - DISEASE OF PANCREAS, UNSPECIFIED (5) Renal mass, left Code(s): N28.89 - OTHER SPECIFIED DISORDERS OF KIDNEY AND URETER (6) HTN (hypertension) Code(s): I10 - ESSENTIAL (PRIMARY) HYPERTENSION (7) Diabetes mellitus Code(s): E11.9 - TYPE 2 DIABETES MELLITUS WITHOUT COMPLICATIONS (8) CAD (coronary artery disease) Code(s): I25.10 - ATHSCL HEART DISEASE OF [place] CORONARY ARTERY W/O ANG PCTRS Visit type - Emergency Visit Emergency Visit: Yes ED Registration Date: 01/18/17 Care time: The patient presented to the Emergency Department on the above date and was hospitalized for further evaluation of their emergent condition. - New Patient This patient is new to me today: No - Critical Care Critical Care patient: No
[2017-01-19 15:57] VITALS: BMI 34.7
--- NOTE | 2017-01-19 17:30 | PN ---
Progress Note, Physician History of Present Illness: Pt seen and examined at bedside. He is awake and alert. He denies shortness of breath. - Current Medication List Current Medications: Active Medications Docusate Sodium (Colace -) 100 mg PO BID [facility] Last Admin: 01/19/17 10:02 Dose: Not Given Heparin Sodium (Porcine) (Heparin -) 5,000 unit SQ BID [facility] Last Admin: 01/19/17 10:02 Dose: Not Given Ceftriaxone Sodium (Rocephin 1gm Ivpb (Pre-Docked)) 50 mls @ 100 mls/hr IVPB DAILY [facility] Last Admin: 01/19/17 10:16 Dose: 100 mls/hr Sodium Chloride (1/2 Normal Saline) 1,000 mls @ 42 mls/hr IV ASDIR [facility] Last Admin: 01/19/17 06:38 Dose: 42 mls/hr Insulin Aspart (Novolog Vial Sliding Scale -) 1 vial SQ ACHS [facility] PRN Reason: Protocol Last Admin: 01/19/17 16:44 Dose: Not Given Morphine Sulfate (Morphine Injection -) 2 mg IVPUSH Q4H PRN PRN Reason: PAIN Oxycodone HCl (Roxicodone -) 5 mg PO Q4H PRN PRN Reason: PAIN Last Admin: 01/18/17 14:08 Dose: 5 mg Polyethylene Glycol (Miralax (For Daily Use) -) 17 gm PO DAILY [facility] Last Admin: 01/19/17 10:17 Dose: Not Given Senna (Senna -) 1 tab PO HS [facility] Last Admin: 01/18/17 22:52 Dose: 1 tab - Objective Vital Signs: Vital Signs Temperature 98 F 01/19/17 15:41 Pulse Rate 83 01/19/17 15:41 Respiratory Rate 18 01/19/17 15:41 Blood Pressure 137/83 01/19/17 15:41 O2 Sat by Pulse Oximetry (%) 96 01/19/17 15:41 Constitutional: Yes: Calm Eyes: Yes: Conjunctiva Clear HENT: Yes: Atraumatic Neck: Yes: Supple Cardiovascular: Yes: S1, S2 Respiratory: Yes: CTA Bilaterally Gastrointestinal: Yes: Soft Genitourinary: Yes: WNL Musculoskeletal: Yes: WNL Edema: No Neurological: Yes: Oriented Psychiatric: Yes: Oriented Labs: CBC, BMP 01/19/17 05:35 01/19/17 05:35 Problem List - Problems (1) ARTI (acute kidney injury) Code(s): N17.9 - ACUTE KIDNEY FAILURE, UNSPECIFIED (2) Abdominal mass Code(s): R19.00 - INTRA-ABD AND PELVIC SWELLING, MASS AND LUMP, UNSP SITE Qualifiers: Abdominal location: other location Qualified Code(s): R19.09 - Other intra-abdominal and pelvic swelling, mass and lump (3) CAD (coronary artery disease) Code(s): I25.10 - ATHSCL HEART DISEASE OF [place] CORONARY ARTERY W/O ANG PCTRS (4) Diabetes mellitus Code(s): E11.9 - TYPE 2 DIABETES MELLITUS WITHOUT COMPLICATIONS (5) HTN (hypertension) Code(s): I10 - ESSENTIAL (PRIMARY) HYPERTENSION (6) Lesion of pancreas Code(s): K86.9 - DISEASE OF PANCREAS, UNSPECIFIED (7) Nephrolithiasis Code(s): N20.0 - CALCULUS OF KIDNEY (8) Obstruction of kidney Code(s): N28.89 - OTHER SPECIFIED DISORDERS OF KIDNEY AND URETER (9) UTI (urinary tract infection) Code(s): N39.0 - URINARY TRACT INFECTION, SITE NOT SPECIFIED Qualifiers: Urinary tract infection type: site unspecified Hematuria presence: without hematuria Qualified Code(s): N39.0 - Urinary tract infection, site not specified Assessment/Plan Current Medications Generic Name Dose Route Start Last Admin Trade Name Freq PRN Reason Stop Dose Admin Docusate Sodium 100 mg 01/18/17 22:00 01/19/17 10:02 Colace - PO Not Given BID [facility] Heparin Sodium (Porcine) 5,000 unit 01/18/17 12:15 01/19/17 10:02 Heparin - SQ Not Given BID [facility] Ceftriaxone Sodium 50 mls @ 100 mls/hr 01/19/17 10:00 01/19/17 10:16 Rocephin 1gm Ivpb (Pre-Docked) IVPB 100 mls/hr DAILY [facility] Administration Sodium Chloride 1,000 mls @ 42 mls/hr 01/18/17 15:15 01/19/17 06:38 1/2 Normal Saline IV 42 mls/hr ASDIR [facility] Administration Insulin Aspart 1 vial 01/18/17 16:30 01/19/17 16:44 Novolog Vial Sliding Scale - SQ Not Given ACHS [facility] Protocol Morphine Sulfate 2 mg 01/18/17 12:10 Morphine Injection - IVPUSH Q4H PRN PAIN Oxycodone HCl 5 mg 01/18/17 12:15 01/18/17 14:08 Roxicodone - PO 5 mg Q4H PRN Administration PAIN Polyethylene Glycol 17 gm 01/18/17 14:00 01/19/17 10:17 Miralax (For Daily Use) - PO Not Given DAILY [facility] Senna 1 tab 01/18/17 22:00 01/18/17 22:52 Senna - PO 1 tab HS [facility] Administration Impression 1. ARTI 2. pancreatic mass 3. nephrolithiasis 4. HTN 5. DM 6. left hydronephrosis 7. CAD 8. hx CVA Plan - renal function is improving - will cont with current fluids - urology evaluation - renal ultrasound reviewed - pt is getting a non contrast MR to evaluate pancrease - discussed with hospitalist Dr Olvera
[2017-01-19] MEDS ORDERED: INSULIN (NOVOLOG) ASPART 100 UNITS/ML 10ML VIAL ONE (21:01)
[2017-01-19] MEDS: SENNOSIDES 8.6MG TABLET (FP) PO SCH (21:09)
[2017-01-20] MEDS: SODIUM CHLORIDE 0.45% 1,000 ML IV SCH ×2 (05:49→21:24)
[2017-01-20] MEDS: INSULIN SLIDING SCALE (NOVOLOG) 1 VIAL SQ SCH ×4 (06:16→21:28)
[2017-01-20 08:21] LABS: ANION GAP 8 (8-16); CALCIUM 8.7 mg/dL (8.5-10.1); CO2 24 mmol/L (21-32); CREATININE 1.3 mg/dL (0.7-1.3); GLUCOSE,RANDOM 122 mg/dL (74-106)
[2017-01-20] MEDS: POLYETHYLENE GLYCOL 3350 119 GM BTL PO SCH (09:20)
[2017-01-20] MEDS: DOCUSATE SODIUM 100 MG CAPSULE (FP) PO SCH ×2 (09:21→21:24)
[2017-01-20] MEDS: CEFTRIAXONE 50 ML IVPB SCH (09:21)
[2017-01-20] MEDS: HEPARIN NA (PORCINE) 5,000 UNITS/ML 1ML VIAL SQ SCH ×2 (09:21→21:24)
--- NOTE | 2017-01-20 13:39 | PN ---
Progress Note, Physician History of Present Illness: Pt seen and examined at bedside. He is awake and alert. He denies shortness of breath. - Current Medication List Current Medications: Active Medications Docusate Sodium (Colace -) 100 mg PO BID [facility] Last Admin: 01/20/17 09:21 Dose: 100 mg Heparin Sodium (Porcine) (Heparin -) 5,000 unit SQ BID [facility] Last Admin: 01/20/17 09:21 Dose: 5,000 unit Ceftriaxone Sodium (Rocephin 1gm Ivpb (Pre-Docked)) 50 mls @ 100 mls/hr IVPB DAILY [facility] Last Admin: 01/20/17 09:21 Dose: 100 mls/hr Sodium Chloride (1/2 Normal Saline) 1,000 mls @ 42 mls/hr IV ASDIR [facility] Last Admin: 01/20/17 05:49 Dose: 42 mls/hr Insulin Aspart (Novolog Vial Sliding Scale -) 1 vial SQ ACHS [facility] PRN Reason: Protocol Last Admin: 01/20/17 11:21 Dose: 2 units Morphine Sulfate (Morphine Injection -) 2 mg IVPUSH Q4H PRN PRN Reason: PAIN Oxycodone HCl (Roxicodone -) 5 mg PO Q4H PRN PRN Reason: PAIN Last Admin: 01/18/17 14:08 Dose: 5 mg Polyethylene Glycol (Miralax (For Daily Use) -) 17 gm PO DAILY [facility] Last Admin: 01/20/17 09:20 Dose: 17 gm Senna (Senna -) 1 tab PO HS [facility] Last Admin: 01/19/17 21:09 Dose: 1 tab - Objective Vital Signs: Vital Signs Temperature 97.9 F 01/20/17 08:00 Pulse Rate 68 01/20/17 08:00 Respiratory Rate 18 01/20/17 08:00 Blood Pressure 129/68 01/20/17 08:00 O2 Sat by Pulse Oximetry (%) 98 01/20/17 09:00 Constitutional: Yes: Calm Eyes: Yes: Conjunctiva Clear HENT: Yes: Atraumatic Neck: Yes: Supple Cardiovascular: Yes: S1, S2 Respiratory: Yes: CTA Bilaterally Gastrointestinal: Yes: Normal Bowel Sounds, Soft Genitourinary: Yes: WNL Extremities: Yes: WNL Edema: No Neurological: Yes: Oriented Psychiatric: Yes: Oriented Labs: CBC, BMP 01/19/17 05:35 01/20/17 07:15 Problem List - Problems (1) ARTI (acute kidney injury) Code(s): N17.9 - ACUTE KIDNEY FAILURE, UNSPECIFIED (2) Abdominal mass Code(s): R19.00 - INTRA-ABD AND PELVIC SWELLING, MASS AND LUMP, UNSP SITE Qualifiers: Abdominal location: other location Qualified Code(s): R19.09 - Other intra-abdominal and pelvic swelling, mass and lump (3) CAD (coronary artery disease) Code(s): I25.10 - ATHSCL HEART DISEASE OF [place] CORONARY ARTERY W/O ANG PCTRS (4) Diabetes mellitus Code(s): E11.9 - TYPE 2 DIABETES MELLITUS WITHOUT COMPLICATIONS (5) HTN (hypertension) Code(s): I10 - ESSENTIAL (PRIMARY) HYPERTENSION (6) Lesion of pancreas Code(s): K86.9 - DISEASE OF PANCREAS, UNSPECIFIED (7) Nephrolithiasis Code(s): N20.0 - CALCULUS OF KIDNEY (8) Obstruction of kidney Code(s): N28.89 - OTHER SPECIFIED DISORDERS OF KIDNEY AND URETER (9) UTI (urinary tract infection) Code(s): N39.0 - URINARY TRACT INFECTION, SITE NOT SPECIFIED Qualifiers: Urinary tract infection type: site unspecified Hematuria presence: without hematuria Qualified Code(s): N39.0 - Urinary tract infection, site not specified Assessment/Plan Current Medications Generic Name Dose Route Start Last Admin Trade Name Freq PRN Reason Stop Dose Admin Docusate Sodium 100 mg 01/18/17 22:00 01/20/17 09:21 Colace - PO 100 mg BID [facility] Administration Heparin Sodium (Porcine) 5,000 unit 01/18/17 12:15 01/20/17 09:21 Heparin - SQ 5,000 unit BID [facility] Administration Ceftriaxone Sodium 50 mls @ 100 mls/hr 01/19/17 10:00 01/20/17 09:21 Rocephin 1gm Ivpb (Pre-Docked) IVPB 100 mls/hr DAILY [facility] Administration Sodium Chloride 1,000 mls @ 42 mls/hr 01/18/17 15:15 01/20/17 05:49 1/2 Normal Saline IV 42 mls/hr ASDIR [facility] Administration Insulin Aspart 1 vial 01/18/17 16:30 01/20/17 11:21 Novolog Vial Sliding Scale - SQ 2 units ACHS [facility] Administration Protocol Morphine Sulfate 2 mg 01/18/17 12:10 Morphine Injection - IVPUSH Q4H PRN PAIN Oxycodone HCl 5 mg 01/18/17 12:15 01/18/17 14:08 Roxicodone - PO 5 mg Q4H PRN Administration PAIN Polyethylene Glycol 17 gm 01/18/17 14:00 01/20/17 09:20 Miralax (For Daily Use) - PO 17 gm DAILY [facility] Administration Senna 1 tab 01/18/17 22:00 01/19/17 21:09 Senna - PO 1 tab HS [facility] Administration Impression 1. ARTI 2. pancreatic mass 3. nephrolithiasis 4. HTN 5. DM 6. left hydronephrosis 7. CAD 8. hx CVA Plan - renal function continues to improve - urology follow up - repeat labs in am - will cont with current fluids - follow up imaging for pancreatic mass - discussed with hospitalist Dr Olvera
--- NOTE | 2017-01-20 17:18 | PN ---
Physical Exam: SUBJECTIVE: Patient seen and examined. He is feeling better, no sob no pain, he comfortable laying flat OBJECTIVE: Vital Signs Period Temp Pulse Resp BP Sys/[place] Pulse Ox Last 24 Hr 96.3 F-98.8 F 68-79 18-20 128-137/65-78 97-98 PE Neuro: alert, awake, cn 2-12intact Pulm: CTAB CV: s1 s2 rrr no mrg Abd: obese abd, s nt nd +bs Ext:warm, no le edema Laboratory Results - last 24 hr 01/19/17 01/20/17 01/20/17 21:06 05:48 07:15 Sodium 141 Potassium 4.3 Chloride 109 H Carbon Dioxide 24 Anion Gap 8 BUN 21 H Creatinine 1.3 POC Glucometer 161 133 Random Glucose 122 H Calcium 8.7 Active Medications Generic Name Dose Route Start Last Admin Trade Name Freq PRN Reason Stop Dose Admin Docusate Sodium 100 mg 01/18/17 22:00 01/20/17 09:21 Colace - PO 100 mg BID [facility] Administration Heparin Sodium (Porcine) 5,000 unit 01/18/17 12:15 01/20/17 09:21 Heparin - SQ 5,000 unit BID [facility] Administration Ceftriaxone Sodium 50 mls @ 100 mls/hr 01/19/17 10:00 01/20/17 09:21 Rocephin 1gm Ivpb (Pre-Docked) IVPB 100 mls/hr DAILY [facility] Administration Sodium Chloride 1,000 mls @ 42 mls/hr 01/18/17 15:15 01/20/17 05:49 1/2 Normal Saline IV 42 mls/hr ASDIR [facility] Administration Insulin Aspart 1 vial 01/18/17 16:30 01/20/17 16:23 Novolog Vial Sliding Scale - SQ Not Given ACHS [facility] Protocol Morphine Sulfate 2 mg 01/18/17 12:10 Morphine Injection - IVPUSH Q4H PRN PAIN Oxycodone HCl 5 mg 01/18/17 12:15 01/18/17 14:08 Roxicodone - PO 5 mg Q4H PRN Administration PAIN Polyethylene Glycol 17 gm 01/18/17 14:00 01/20/17 09:20 Miralax (For Daily Use) - PO 17 gm DAILY [facility] Administration Senna 1 tab 01/18/17 22:00 01/19/17 21:09 Senna - PO 1 tab HS [facility] Administration Assessment: 76 year old male admitted with right flank pain and UTI, found to have renal mass and pancreatic tail lesion Plan: 1. UTI - Urine cx no growth - Ceftriaxone daily (day 3) 2. ARTI - Cr improved, wnl today - Hold nephrotoxic agents, NSAIDS etc - Hold enalapril/HCTZ - Maintain gentle fluids at current rate 3. L renal mass - Renal us show mild irregularity thickening of urinary bladder ?obstruction, enlarged prostate - Flomax daily - Awaiting urology consult 4. L Nephrolithiasis with hydro - x2 non obstructing stones w/ mild hydro - IVF as above 5. Pancreatic tail lesion - Abd MRI wo contrast with MRCP tonight - CEA, Ca 19-9 pending - GI following 6. HTN - Stable BP - Hold HCTZ/enalapril - Give Labetalol as needed 7. Constipation - Resolved - Bowel regimen 8. PPx - DVT: heparin sq - Renal diet Problem List - Problems (1) ARTI (acute kidney injury) Code(s): N17.9 - ACUTE KIDNEY FAILURE, UNSPECIFIED (2) UTI (urinary tract infection) Code(s): N39.0 - URINARY TRACT INFECTION, SITE NOT SPECIFIED Qualifiers: Urinary tract infection type: site unspecified Hematuria presence: without hematuria Qualified Code(s): N39.0 - Urinary tract infection, site not specified (3) Nephrolithiasis Code(s): N20.0 - CALCULUS OF KIDNEY (4) Lesion of pancreas Code(s): K86.9 - DISEASE OF PANCREAS, UNSPECIFIED (5) Renal mass, left Code(s): N28.89 - OTHER SPECIFIED DISORDERS OF KIDNEY AND URETER (6) HTN (hypertension) Code(s): I10 - ESSENTIAL (PRIMARY) HYPERTENSION (7) Diabetes mellitus Code(s): E11.9 - TYPE 2 DIABETES MELLITUS WITHOUT COMPLICATIONS (8) CAD (coronary artery disease) Code(s): I25.10 - ATHSCL HEART DISEASE OF [place] CORONARY ARTERY W/O ANG PCTRS Visit type - Emergency Visit Emergency Visit: Yes ED Registration Date: 01/18/17 Care time: The patient presented to the Emergency Department on the above date and was hospitalized for further evaluation of their emergent condition. - New Patient This patient is new to me today: No - Critical Care Critical Care patient: No
[2017-01-20] MEDS: SENNOSIDES 8.6MG TABLET (FP) PO SCH (21:24)
[2017-01-20] MEDS ORDERED: INSULIN (NOVOLOG) ASPART 100 UNITS/ML 10ML VIAL ONE (21:30)
[2017-01-21] MEDS: INSULIN SLIDING SCALE (NOVOLOG) 1 VIAL SQ SCH ×4 (06:17→22:01)
[2017-01-21] MEDS: oxyCODONE HCL 5 MG TABLET PO PRN (07:21)
[2017-01-21] MEDS: TAMSULOSIN HCL 0.4 MG CAP.ER.24H (FP) PO SCH (08:36)
[2017-01-21 09:10] LABS: ANION GAP 10 (8-16); CALCIUM 8.8 mg/dL (8.5-10.1); CO2 23 mmol/L (21-32); GLUCOSE,RANDOM 142 mg/dL (74-106)
[2017-01-21 09:11] LABS: CREATININE 1.3 mg/dL (0.7-1.3)
[2017-01-21] MEDS: SODIUM CHLORIDE 0.45% 1,000 ML IV SCH ×2 (09:24→17:09)
[2017-01-21] MEDS ORDERED: PT OWN MED DRAWER 7, Y5N ONE (09:41)
[2017-01-21] MEDS: HEPARIN NA (PORCINE) 5,000 UNITS/ML 1ML VIAL SQ SCH ×2 (09:46→22:04)
[2017-01-21] MEDS: DOCUSATE SODIUM 100 MG CAPSULE (FP) PO SCH ×2 (09:46→22:04)
[2017-01-21] MEDS: CEFTRIAXONE 50 ML IVPB SCH (09:58)
[2017-01-21] MEDS: POLYETHYLENE GLYCOL 3350 119 GM BTL PO SCH (09:58)
--- NOTE | 2017-01-21 16:07 | PN ---
Physical Exam: SUBJECTIVE: Patient seen and examined at bedside. Complaining of right lower back/right hip pain which occasionally radiates down his leg. Pain is intermittent. Did well with PT today. OBJECTIVE: Vital Signs Period Temp Pulse Resp BP Sys/[place] Pulse Ox Last 24 Hr 97.7 F-98.6 F 65-85 18-22 115-166/62-80 97-98 General/Neuro: A&Ox3; speech clear; moves all extremities; steady gait Pulm: Lungs CTA CV: S1, S2, rrr; no m/r/g Abdomen: soft, not tender, not distended, + bowel sounds Upper ext: 2+ pulses, warm, well-perfused, no edema Lower ext: 2+ pulses, warm, well-perfused, no edema Laboratory Results - last 24 hr 01/20/17 01/20/17 01/21/17 16:22 21:27 06:16 Sodium Potassium Chloride Carbon Dioxide Anion Gap BUN Creatinine POC Glucometer 143 190 137 Random Glucose Calcium 01/21/17 01/21/17 01/21/17 06:20 08:26 11:22 Sodium 142 Potassium 4.6 Chloride 109 H Carbon Dioxide 23 Anion Gap 10 BUN 20 H Creatinine 1.3 POC Glucometer 96 152 Random Glucose 142 H Calcium 8.8 Active Medications Generic Name Dose Route Start Last Admin Trade Name Elsi PRN Reason Stop Dose Admin Docusate Sodium 100 mg 01/18/17 22:00 01/21/17 09:46 Colace - PO 100 mg BID SOPHIE Administration Heparin Sodium (Porcine) 5,000 unit 01/18/17 12:15 01/21/17 09:46 Heparin - SQ 5,000 unit BID SOP[facility]IE Administration Ceftriaxone Sodium 50 mls @ 100 mls/hr 01/19/17 10:00 01/21/17 09:58 Rocephin 1gm Ivpb (Pre-Docked) IVPB 100 mls/hr DAILY [facility]OP[facility]IE Administration Sodium Chloride 1,000 mls @ 42 mls/hr 01/18/17 15:15 01/21/17 09:24 1/2 Normal Saline IV 42 mls/hr ASDIR SOPHIE Administration Insulin Aspart 1 vial 01/18/17 16:30 01/21/17 12:45 Novolog Vial Sliding Scale - SQ 2 units ACHS SOPHIE Administration Protocol Polyethylene Glycol 17 gm 01/18/17 14:00 01/21/17 09:58 Miralax (For Daily Use) - PO 17 gm DAILY SOP[facility]IE Administration Senna 1 tab 01/18/17 22:00 01/20/17 21:24 Senna - PO 1 tab HS SOPHIE Administration Tamsulosin HCl 0.4 mg 01/21/17 08:30 01/21/17 08:36 Flomax - PO 0.4 mg DAILY@0830 [facility] Administration Imaging 01/18 CTAP: hypodense lesion anterior pancreatic tail 2.3 x 1.4cm; left hydronephrosis with renal pelvic stone 2.4 x 1.1cm 01/18 US renal/bladder: mild left renal hydronephrosis; left nonobstructing stones; enlarged prostate, 148ccs PVR 01/20 MRCP w/o contrast: lobulated multiseptated lesion in tail of pancreas 2.8cm , need MRI with contrast ASSESSMENT/PLAN 76 year-old male with a PMH of HTN, CAD, CVA, NIDDM, and nephrolithiasis. Admitted for ARTI, UTI, mild left hydronephrosis. Pancreatic tail lesion --MRCP with contrast pending --CEA and CA19-9 elevated Urinary tract infection --3,327 WBCs in urine --culture negative but had been on PO antibiotics for UTI prior to admission --continue ceftriaxone (day #3) Acute kidney injury, improved Mild left hydronephrosis --may have been secondary to obstructive enlarged prostate; no evidence of obstructing renal calculi, but stone may have passed --Cr 1.8 on admission, down trending, today 1.3 --FeNa 1.2% intrinsic --continue gentle fluids --hold thiazide, ACEI BPH --continue flomax NIDDM --Novolog sliding scale coverage F/E/N Fluids: 1/2 NS @ 42mL/hr Electrolytes: replete as indicated Nutrition: renal, diabetic DVT prophylaxis: subq heparin, oob, ambulation Daily PT Dispo: continues to require inpatient care. Full Code. Visit type - Emergency Visit Emergency Visit: Yes ED Registration Date: 01/18/17 Care time: The patient presented to the Emergency Department on the above date and was hospitalized for further evaluation of their emergent condition. - New Patient This patient is new to me today: Yes Date on this admission: 01/21/17 - Critical Care Critical Care patient: No
--- NOTE | 2017-01-21 16:23 | PN ---
Progress Note, Physician History of Present Illness: Pt seen and examined at bedside. He is awake and alert. He denies fever or chills. He is eager to go home. - Current Medication List Current Medications: Active Medications Docusate Sodium (Colace -) 100 mg PO BID [facility] Last Admin: 01/21/17 09:46 Dose: 100 mg Heparin Sodium (Porcine) (Heparin -) 5,000 unit SQ BID [facility] Last Admin: 01/21/17 09:46 Dose: 5,000 unit Ceftriaxone Sodium (Rocephin 1gm Ivpb (Pre-Docked)) 50 mls @ 100 mls/hr IVPB DAILY [facility] Last Admin: 01/21/17 09:58 Dose: 100 mls/hr Sodium Chloride (1/2 Normal Saline) 1,000 mls @ 42 mls/hr IV ASDIR [facility] Last Admin: 01/21/17 09:24 Dose: 42 mls/hr Insulin Aspart (Novolog Vial Sliding Scale -) 1 vial SQ ACHS [facility] PRN Reason: Protocol Last Admin: 01/21/17 12:45 Dose: 2 units Polyethylene Glycol (Miralax (For Daily Use) -) 17 gm PO DAILY [facility] Last Admin: 01/21/17 09:58 Dose: 17 gm Senna (Senna -) 1 tab PO HS [facility] Last Admin: 01/20/17 21:24 Dose: 1 tab Tamsulosin HCl (Flomax -) 0.4 mg PO DAILY@0830 [facility] Last Admin: 01/21/17 08:36 Dose: 0.4 mg - Objective Vital Signs: Vital Signs Temperature 97.9 F 01/21/17 14:22 Pulse Rate 85 01/21/17 14:22 Respiratory Rate 18 01/21/17 14:22 Blood Pressure 125/73 01/21/17 14:22 O2 Sat by Pulse Oximetry (%) 98 01/21/17 09:00 Constitutional: Yes: Calm Eyes: Yes: Conjunctiva Clear HENT: Yes: Atraumatic Neck: Yes: Supple Cardiovascular: Yes: S1, S2 Respiratory: Yes: CTA Bilaterally Gastrointestinal: Yes: Soft Genitourinary: Yes: WNL Musculoskeletal: Yes: WNL Edema: No Neurological: Yes: Oriented Psychiatric: Yes: Oriented Labs: CBC, BMP 01/19/17 05:35 01/21/17 08:26 Problem List - Problems (1) ARTI (acute kidney injury) Code(s): N17.9 - ACUTE KIDNEY FAILURE, UNSPECIFIED (2) Abdominal mass Code(s): R19.00 - INTRA-ABD AND PELVIC SWELLING, MASS AND LUMP, UNSP SITE Qualifiers: Abdominal location: other location Qualified Code(s): R19.09 - Other intra-abdominal and pelvic swelling, mass and lump (3) CAD (coronary artery disease) Code(s): I25.10 - ATHSCL HEART DISEASE OF [place] CORONARY ARTERY W/O ANG PCTRS (4) Diabetes mellitus Code(s): E11.9 - TYPE 2 DIABETES MELLITUS WITHOUT COMPLICATIONS (5) HTN (hypertension) Code(s): I10 - ESSENTIAL (PRIMARY) HYPERTENSION (6) Lesion of pancreas Code(s): K86.9 - DISEASE OF PANCREAS, UNSPECIFIED (7) Nephrolithiasis Code(s): N20.0 - CALCULUS OF KIDNEY (8) Obstruction of kidney Code(s): N28.89 - OTHER SPECIFIED DISORDERS OF KIDNEY AND URETER (9) UTI (urinary tract infection) Code(s): N39.0 - URINARY TRACT INFECTION, SITE NOT SPECIFIED Qualifiers: Urinary tract infection type: site unspecified Hematuria presence: without hematuria Qualified Code(s): N39.0 - Urinary tract infection, site not specified Assessment/Plan Current Medications Generic Name Dose Route Start Last Admin Trade Name Freq PRN Reason Stop Dose Admin Docusate Sodium 100 mg 01/18/17 22:00 01/21/17 09:46 Colace - PO 100 mg BID [facility]HIE Administration Heparin Sodium (Porcine) 5,000 unit 01/18/17 12:15 01/21/17 09:46 Heparin - SQ 5,000 unit BID [facility]IE Administration Ceftriaxone Sodium 50 mls @ 100 mls/hr 01/19/17 10:00 01/21/17 09:58 Rocephin 1gm Ivpb (Pre-Docked) IVPB 100 mls/hr DAILY [facility] Administration Sodium Chloride 1,000 mls @ 42 mls/hr 01/18/17 15:15 01/21/17 09:24 1/2 Normal Saline IV 42 mls/hr ASDIR SOP[facility]IE Administration Insulin Aspart 1 vial 01/18/17 16:30 01/21/17 12:45 Novolog Vial Sliding Scale - SQ 2 units ACHS [facility] Administration Protocol Polyethylene Glycol 17 gm 01/18/17 14:00 01/21/17 09:58 Miralax (For Daily Use) - PO 17 gm DAILY [facility] Administration Senna 1 tab 01/18/17 22:00 01/20/17 21:24 Senna - PO 1 tab HS [facility]OP[facility]IE Administration Tamsulosin HCl 0.4 mg 01/21/17 08:30 01/21/17 08:36 Flomax - PO 0.4 mg DAILY@0830 [facility] Administration Impression 1. ARTI 2. pancreatic mass 3. nephrolithiasis 4. HTN 5. DM 6. left hydronephrosis 7. CAD 8. hx CVA Plan - renal function is stable for now - urology eval is pending - repeat labs in am - will cont with current fluids - discussed plan with pt Dr Olvera
[2017-01-21] MEDS: SENNOSIDES 8.6MG TABLET (FP) PO SCH (22:04)
[2017-01-22] MEDS: INSULIN SLIDING SCALE (NOVOLOG) 1 VIAL SQ SCH ×3 (06:14→17:56)
[2017-01-22] MEDS: TAMSULOSIN HCL 0.4 MG CAP.ER.24H (FP) PO SCH (08:15)
[2017-01-22] MEDS: CEFTRIAXONE 50 ML IVPB SCH (09:55)
[2017-01-22] MEDS: DOCUSATE SODIUM 100 MG CAPSULE (FP) PO SCH (09:55)
[2017-01-22] MEDS: HEPARIN NA (PORCINE) 5,000 UNITS/ML 1ML VIAL SQ SCH (09:55)
[2017-01-22] MEDS: POLYETHYLENE GLYCOL 3350 119 GM BTL PO SCH (09:57)
--- NOTE | 2017-01-22 12:23 | PN ---
Progress Note, Physician History of Present Illness: Pt seen and examined at bedside. He is awake and alert. He denies dysuria. - Current Medication List Current Medications: Active Medications Docusate Sodium (Colace -) 100 mg PO BID [facility] Last Admin: 01/22/17 09:55 Dose: 100 mg Heparin Sodium (Porcine) (Heparin -) 5,000 unit SQ BID [facility] Last Admin: 01/22/17 09:55 Dose: 5,000 unit Ceftriaxone Sodium (Rocephin 1gm Ivpb (Pre-Docked)) 50 mls @ 100 mls/hr IVPB DAILY [facility] Last Admin: 01/22/17 09:55 Dose: 100 mls/hr Sodium Chloride (1/2 Normal Saline) 1,000 mls @ 42 mls/hr IV ASDIR [facility] Last Admin: 01/21/17 17:09 Dose: Not Given Insulin Aspart (Novolog Vial Sliding Scale -) 1 vial SQ ACHS [facility] PRN Reason: Protocol Last Admin: 01/22/17 11:40 Dose: 2 units Polyethylene Glycol (Miralax (For Daily Use) -) 17 gm PO DAILY [facility] Last Admin: 01/22/17 09:57 Dose: Not Given Senna (Senna -) 1 tab PO HS [facility] Last Admin: 01/21/17 22:04 Dose: 1 tab Tamsulosin HCl (Flomax -) 0.4 mg PO DAILY@0830 [facility] Last Admin: 01/22/17 08:15 Dose: 0.4 mg - Objective Vital Signs: Vital Signs Temperature 97.9 F 01/22/17 09:00 Pulse Rate 69 01/22/17 09:00 Respiratory Rate 18 01/22/17 09:00 Blood Pressure 136/67 01/22/17 09:00 O2 Sat by Pulse Oximetry (%) 98 01/21/17 21:00 Constitutional: Yes: Calm Eyes: Yes: Conjunctiva Clear HENT: Yes: Atraumatic Cardiovascular: Yes: S1, S2 Respiratory: Yes: CTA Bilaterally Gastrointestinal: Yes: Normal Bowel Sounds, Soft Genitourinary: Yes: WNL Musculoskeletal: Yes: WNL Edema: No Neurological: Yes: Oriented Psychiatric: Yes: Oriented Labs: CBC, BMP 01/19/17 05:35 01/21/17 08:26 Problem List - Problems (1) ARTI (acute kidney injury) Code(s): N17.9 - ACUTE KIDNEY FAILURE, UNSPECIFIED (2) Abdominal mass Code(s): R19.00 - INTRA-ABD AND PELVIC SWELLING, MASS AND LUMP, UNSP SITE Qualifiers: Abdominal location: other location Qualified Code(s): R19.09 - Other intra-abdominal and pelvic swelling, mass and lump (3) CAD (coronary artery disease) Code(s): I25.10 - ATHSCL HEART DISEASE OF [place] CORONARY ARTERY W/O ANG PCTRS (4) Diabetes mellitus Code(s): E11.9 - TYPE 2 DIABETES MELLITUS WITHOUT COMPLICATIONS (5) HTN (hypertension) Code(s): I10 - ESSENTIAL (PRIMARY) HYPERTENSION (6) Lesion of pancreas Code(s): K86.9 - DISEASE OF PANCREAS, UNSPECIFIED (7) Nephrolithiasis Code(s): N20.0 - CALCULUS OF KIDNEY (8) Obstruction of kidney Code(s): N28.89 - OTHER SPECIFIED DISORDERS OF KIDNEY AND URETER (9) UTI (urinary tract infection) Code(s): N39.0 - URINARY TRACT INFECTION, SITE NOT SPECIFIED Qualifiers: Urinary tract infection type: site unspecified Hematuria presence: without hematuria Qualified Code(s): N39.0 - Urinary tract infection, site not specified Assessment/Plan Current Medications Generic Name Dose Route Start Last Admin Trade Name Freq PRN Reason Stop Dose Admin Docusate Sodium 100 mg 01/18/17 22:00 01/22/17 09:55 Colace - PO 100 mg BID SOP[facility]IE Administration Heparin Sodium (Porcine) 5,000 unit 01/18/17 12:15 01/22/17 09:55 Heparin - SQ 5,000 unit BID [facility] Administration Ceftriaxone Sodium 50 mls @ 100 mls/hr 01/19/17 10:00 01/22/17 09:55 Rocephin 1gm Ivpb (Pre-Docked) IVPB 100 mls/hr DAILY [facility] Administration Sodium Chloride 1,000 mls @ 42 mls/hr 01/18/17 15:15 01/21/17 17:09 1/2 Normal Saline IV Not Given ASDIR [facility]OPHIE Insulin Aspart 1 vial 01/18/17 16:30 01/22/17 11:40 Novolog Vial Sliding Scale - SQ 2 units ACHS [facility] Administration Protocol Polyethylene Glycol 17 gm 01/18/17 14:00 06/23/17 09:57 Miralax (For Daily Use) - PO Not Given DAILY [facility] Senna 1 tab 01/18/17 22:00 01/21/17 22:04 Senna - PO 1 tab HS [facility]OP[facility]IE Administration Tamsulosin HCl 0.4 mg 01/21/17 08:30 01/22/17 08:15 Flomax - PO 0.4 mg DAILY@0830 [facility] Administration Impression 1. ARTI 2. pancreatic mass 3. nephrolithiasis 4. HTN 5. DM 6. left hydronephrosis 7. CAD 8. hx CVA Plan - check bmp - can stop fluids - follow up abd mri report - eval still pending - repeat labs in am - discussed plan with pt Dr Olvera
--- NOTE | 2017-01-22 13:11 | PN ---
Physical Exam: SUBJECTIVE: Patient seen and examined. OBJECTIVE: Vital Signs Period Temp Pulse Resp BP Sys/[place] Pulse Ox Last 24 Hr 97.9 F-98.3 F 66-85 18-20 124-145/63-89 98-98 General/Neuro: A&Ox3; speech clear; moves all extremities; steady gait Pulm: Lungs CTA CV: S1, S2, rrr; no m/r/g Abdomen: soft, not tender, not distended, + bowel sounds Upper ext: 2+ pulses, warm, well-perfused, no edema Lower ext: 2+ pulses, warm, well-perfused, no edema CBCD WBC 8.6 K/mm3 (4.0-10.0) 01/19/17 05:35 RBC 4.26 M/mm3 (4.00-5.60) 01/19/17 05:35 Hgb 12.5 GM/dL (11.7-16.9) 01/19/17 05:35 Hct 37.7 % (35.4-49) 01/19/17 05:35 MCV 88.5 fl (80-96) 01/19/17 05:35 MCHC 33.1 g/dl (32.0-35.9) 01/19/17 05:35 RDW 14.3 % (11.9-15.9) 01/19/17 05:35 Plt Count 229 K/MM3 (134-434) 01/19/17 05:35 MPV 8.0 fl (7.5-11.1) 01/19/17 05:35 CMP Sodium 142 mmol/L (136-145) 01/21/17 08:26 Potassium 4.6 mmol/L (3.5-5.1) 01/21/17 08:26 Chloride 109 mmol/L (98-107) H 01/21/17 08:26 Carbon Dioxide 23 mmol/L (21-32) 01/21/17 08:26 Anion Gap 10 (8-16) 01/21/17 08:26 BUN 20 mg/dL (7-18) H 01/21/17 08:26 Creatinine 1.3 mg/dL (0.7-1.3) 01/21/17 08:26 Creat Clearance w eGFR 45.62 (>60) 01/19/17 05:35 Calcium 8.8 mg/dL (8.5-10.1) 01/21/17 08:26 Total Bilirubin 0.6 mg/dL (0.2-1.0) 01/19/17 05:35 AST 33 U/L (15-37) 01/19/17 05:35 ALT 45 U/L (12-78) 01/19/17 05:35 Alkaline Phosphatase 112 U/L (45-117) 01/19/17 05:35 Total Protein 6.7 g/dl (6.4-8.2) 01/19/17 05:35 Albumin 2.8 g/dl (3.4-5.0) L 01/19/17 05:35 Laboratory Results - last 24 hr 01/21/17 01/21/17 01/22/17 16:09 22:00 05:29 POC Glucometer 136 163 114 01/22/17 11:38 POC Glucometer 173 Active Medications Generic Name Dose Route Start Last Admin Trade Name Freq PRN Reason Stop Dose Admin Docusate Sodium 100 mg 01/18/17 22:00 01/22/17 09:55 Colace - PO 100 mg BID SOPHIE Administration Heparin Sodium (Porcine) 5,000 unit 01/18/17 12:15 01/22/17 09:55 Heparin - SQ 5,000 unit BID [facility] Administration Ceftriaxone Sodium 50 mls @ 100 mls/hr 01/19/17 10:00 01/22/17 09:55 Rocephin 1gm Ivpb (Pre-Docked) IVPB 100 mls/hr DAILY [facility] Administration Insulin Aspart 1 vial 01/18/17 16:30 01/22/17 11:40 Novolog Vial Sliding Scale - SQ 2 units ACHS S[facility]IE Administration Protocol Polyethylene Glycol 17 gm 01/18/17 14:00 01/22/17 09:57 Miralax (For Daily Use) - PO Not Given DAILY [facility] Senna 1 tab 01/18/17 22:00 01/21/17 22:04 Senna - PO 1 tab HS [facility] Administration Tamsulosin HCl 0.4 mg 01/21/17 08:30 01/22/17 08:15 Flomax - PO 0.4 mg DAILY@0830 [facility] Administration Imaging 01/18 CTAP: hypodense lesion anterior pancreatic tail 2.3 x 1.4cm; left hydronephrosis with renal pelvic stone 2.4 x 1.1cm 01/18 US renal/bladder: mild left renal hydronephrosis; left nonobstructing stones; enlarged prostate, 148ccs PVR 01/20 MRCP w/o contrast: lobulated multiseptated lesion in tail of pancreas 2.8cm , need MRI with contrast ASSESSMENT/PLAN 76 year-old male with a PMH of HTN, CAD, CVA, NIDDM, and nephrolithiasis. Admitted for ARTI, UTI, mild left hydronephrosis. 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 Celeste --CEA and CA19-9 elevated Urinary tract infection --3,327 WBCs in urine --culture negative but had been on PO antibiotics for UTI prior to admission --continue ceftriaxone (day #5) Acute kidney injury, improved Mild left hydronephrosis --may have been secondary to obstructive enlarged prostate; no evidence of obstructing renal calculi, but stone may have passed --Cr 1.8 on admission, down trending 1.3 --FeNa 1.2% intrinsic --stop IV fluids --hold thiazide, ACEI BPH --continue flomax NIDDM --Novolog sliding scale coverage F/E/N Fluids: PO intake adequate Electrolytes: replete as indicated Nutrition: renal, diabetic DVT prophylaxis: subq heparin, oob, ambulation Daily PT Dispo: continues to require inpatient care. Full Code. Visit type - Emergency Visit Emergency Visit: Yes ED Registration Date: 01/18/17 Care time: The patient presented to the Emergency Department on the above date and was hospitalized for further evaluation of their emergent condition. - New Patient This patient is new to me today: No - Critical Care Critical Care patient: No
[2017-01-22 13:39] VITALS: TEMP 98.8
--- NOTE | 2017-01-22 17:35 | PN ---
GI Progress Note Subjective: GI NOte: Noncontrast MRI reveals that the mass in the tail of the pancreas has cystoc aspects and is 2.8cm in size without evidence of local spread. I explained that to eFrmin and his . I have given him the phone # to the [facility] and names of Dr Don Coello the surgeon and Dr Josephine Zuniga who does endoscopic ultrasound and fine needle aspiration biopsies which is the next best diagnostic step. I explained that this could prove to still be benign and merit only observation. He is pain free and eating a solid diet. - Objective Vital Signs: Vital Signs Temperature 98.8 F 01/22/17 13:38 Pulse Rate 78 01/22/17 13:38 Respiratory Rate 18 01/22/17 13:38 Blood Pressure 149/82 01/22/17 13:38 O2 Sat by Pulse Oximetry (%) 98 01/22/17 09:00 CBC,CMP WBC 8.6 K/mm3 (4.0-10.0) 01/19/17 05:35 RBC 4.26 M/mm3 (4.00-5.60) 01/19/17 05:35 Hgb 12.5 GM/dL (11.7-16.9) 01/19/17 05:35 Hct 37.7 % (35.4-49) 01/19/17 05:35 MCV 88.5 fl (80-96) 01/19/17 05:35 MCHC 33.1 g/dl (32.0-35.9) 01/19/17 05:35 RDW 14.3 % (11.9-15.9) 01/19/17 05:35 Plt Count 229 K/MM3 (134-434) 01/19/17 05:35 MPV 8.0 fl (7.5-11.1) 01/19/17 05:35 Neutrophils % 60.2 % (42.8-82.8) 01/19/17 05:35 Lymphocytes % 27.6 % (8-40) 01/19/17 05:35 Monocytes % 7.0 % (3.8-10.2) 01/19/17 05:35 Eosinophils % 4.7 % (0-4.5) H 01/19/17 05:35 Basophils % 0.5 % (0-2.0) 01/19/17 05:35 Sodium 142 mmol/L (136-145) 01/21/17 08:26 Potassium 4.6 mmol/L (3.5-5.1) 01/21/17 08:26 Chloride 109 mmol/L (98-107) H 01/21/17 08:26 Carbon Dioxide 23 mmol/L (21-32) 01/21/17 08:26 Anion Gap 10 (8-16) 01/21/17 08:26 BUN 20 mg/dL (7-18) H 01/21/17 08:26 Creatinine 1.3 mg/dL (0.7-1.3) 01/21/17 08:26 Creat Clearance w eGFR 45.62 (>60) 01/19/17 05:35 POC Glucometer 173 UNITS (()) 01/22/17 11:38 Random Glucose 142 mg/dL (74-106) H 01/21/17 08:26 Calcium 8.8 mg/dL (8.5-10.1) 01/21/17 08:26 Total Bilirubin 0.6 mg/dL (0.2-1.0) 01/19/17 05:35 AST 33 U/L (15-37) 01/19/17 05:35 ALT 45 U/L (12-78) 01/19/17 05:35 Alkaline Phosphatase 112 U/L (45-117) 01/19/17 05:35 Total Protein 6.7 g/dl (6.4-8.2) 01/19/17 05:35 Albumin 2.8 g/dl (3.4-5.0) L 01/19/17 05:35 Carcinoembryonic Ag 5.7 ng/mL (0.0-4.7) H 01/18/17 05:35 CA 19-9 Antigen 43 U/mL (0-35) H 01/18/17 05:35 Current Medications Generic Name Dose Route Start Last Admin Trade Name Babakq PRN Reason Stop Dose Admin Docusate Sodium 100 mg 01/18/17 22:00 01/22/17 09:55 Colace - PO 100 mg BID [facility] Administration Heparin Sodium (Porcine) 5,000 unit 01/18/17 12:15 01/22/17 09:55 Heparin - SQ 5,000 unit BID [facility] Administration Ceftriaxone Sodium 50 mls @ 100 mls/hr 01/19/17 10:00 01/22/17 09:55 Rocephin 1gm Ivpb (Pre-Docked) IVPB 100 mls/hr DAILY [facility] Administration Insulin Aspart 1 vial 01/18/17 16:30 01/22/17 11:40 Novolog Vial Sliding Scale - SQ 2 units ACHS [facility] Administration Protocol Polyethylene Glycol 17 gm 01/18/17 14:00 01/22/17 09:57 Miralax (For Daily Use) - PO Not Given DAILY [facility] Senna 1 tab 01/18/17 22:00 01/21/17 22:04 Senna - PO 1 tab HS [facility] Administration Tamsulosin HCl 0.4 mg 01/21/17 08:30 01/22/17 08:15 Flomax - PO 0.4 mg DAILY@0830 [facility] Administration Constitutional: Calm Eyes: Yes: Conjunctiva Clear ...Auscultate: Yes: Normoactive Bowel Sounds ...Palpate: Yes: Soft, Other (nontender) Labs: CBC, BMP 01/19/17 05:35 01/21/17 08:26 Assessment/Plan 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 I have discussed the case with Carolina Deluca NP and explained that I have no objections to discharge.
--- NOTE | 2017-01-22 18:13 | DS ---
Physical Exam: SUBJECTIVE: Patient seen and examined OBJECTIVE: Vital Signs Period Temp Pulse Resp BP Sys/[place] Pulse Ox Last 24 Hr 97.9 F-98.8 F 66-85 18-20 124-149/63-89 98-98 PHYSICAL EXAM GENERAL: The patient is awake, alert, and fully oriented, in no acute distress. HEAD: Normal with no signs of trauma. EYES: PERRL, extraocular movements intact, sclera anicteric, conjunctiva clear. ENT: Ears normal, nares patent, oropharynx clear without exudates, moist mucous membranes. NECK: Trachea midline, full range of motion, supple. LUNGS: Breath sounds equal, clear to auscultation bilaterally, no wheezes, no crackles, no accessory muscle use. HEART: Regular rate and rhythm, S1, S2 without murmur, rub or gallop. ABDOMEN: Soft, nontender, nondistended, normoactive bowel sounds, no guarding, no rebound, no hepatosplenomegaly, no masses. EXTREMITIES: 2+ pulses, warm, well-perfused, no edema. NEUROLOGICAL: Cranial nerves II through XII grossly intact. Normal speech, gait not observed. PSYCH: Normal mood, normal affect. SKIN: Warm, dry, normal turgor, no rashes or lesions noted. LABS Laboratory Results - last 24 hr 01/21/17 01/22/17 01/22/17 22:00 05:29 11:38 POC Glucometer 163 114 173 01/22/17 17:33 POC Glucometer 151 HOSPITAL COURSE: Date of Admission:01/18/17 Date of Discharge: 01/22/17 Discharge Summary Reason For Visit: UTI,ACUTE KIDNEY INJURY,UTI,ABDOMINAL MASS Current Active Problems ARTI (acute kidney injury) (Acute) Abdominal mass (Acute) CAD (coronary artery disease) (Acute) Diabetes mellitus (Acute) HTN (hypertension) (Acute) Lesion of pancreas (Acute) Nephrolithiasis (Acute) Obstruction of kidney (Acute) Pancreatic mass (Acute) Renal mass (Acute) Renal mass, left (Acute) UTI (urinary tract infection) (Acute) Condition: Improved - Instructions Referrals: Torsten Bledsoe MD [Primary Care Provider] - Ortiz Wall MD [Staff Physician] - Disposition: HOME - Home Medications Comprehensive Discharge Medication List: Ambulatory Orders Aspirin [ASA -] 81 mg PO DAILY 01/18/17 Atorvastatin Ca [Lipitor] 20 mg PO DAILY 01/18/17 Glipizide [Glipizide ER] 5 mg PO DAILY 01/18/17 Lisinopril [Prinivil] 0 mg PO DAILY 01/18/17 Metformin HCl [Metformin HCl ER] 500 mg PO BID 01/18/17 Metoprolol Succinate [Toprol Xl] 12.5 mg PO DAILY 01/18/17 Amoxicillin/Potassium Clav [Augmentin 875-125 Tablet] 1 each PO BID #10 tablet 01/22/17 Tamsulosin HCl [Flomax -] 0.4 mg PO DAILY@0830 #30 tab 01/22/17
[2017-01-22 18:37] VITALS: BP 145/92; PULSE 90
== END 2017-01-22 18:42 | disposition home or self-care (01) | DRG 683 ==
LOC: JER 07:16 → JERBED 11:05 → J6S 01-19 14:34
PROVIDERS: ADMIT Internal Medicine; ATTEND Nurse Practitioner Acute Care
DX: N17.9 Acute kidney failure, unspecified (principal); N39.0 Urinary tract infection, site not specified; I10 Essential (primary) hypertension; K59.00 Constipation, unspecified; I25.10 Atherosclerotic heart disease of native coronary artery without angina pectoris; R19.00 Intra-abdominal and pelvic swelling, mass and lump, unspecified site; N40.0 Benign prostatic hyperplasia without lower urinary tract symptoms; E11.9 Type 2 diabetes mellitus without complications; Z86.73 Personal history of transient ischemic attack (TIA), and cerebral infarction without residual deficits; N13.2 Hydronephrosis with renal and ureteral calculous obstruction; K86.9 Disease of pancreas, unspecified
CPT/HCPCS: 36415; 74176; 74181-TC; 74182-TC; 76775-TC; 76856-TC; 80048; 80053; 81003; 81015; 82378; 82436; 82570; 84133; 84300; 85025; 86301; 87086; 93005; 93010; 97116-GP; 97161-GP; 99285-25; J1644

== ENCOUNTER 2018-10-31 20:54 | Emergency (ER) | payer OTHER, BC ==
[2018-10-31 21:14] VITALS: TEMP 98.1; BMI 36.3
[2018-10-31] MEDS ORDERED: KETOROLAC TROMETHAMINE 15 MG/ML VIAL IVPUSH ONE ×2 (21:51→23:23)
--- NOTE | 2018-10-31 21:56 | PDOC ---
History of Present Illness - General Chief Complaint: Pain, Acute Stated Complaint: Flank Pain Time Seen by Provider: 10/31/18 21:12 - History of Present Illness Initial Comments: The pt is a 77M w/ history of HTN, T2DM, kidney stones and hx of L staghorn calculus removal who presents with 2 days of L flank pain that the pt reports is the same as w/ previous kidney stones. He reports an intermittent, achy, non- radiating, cramping L flank pain without associated dysuria or hematuria. He endorses NBNB vomiting x1 associated with pain. He has tried Tylenol w/ minimal relief. Denies fevers/chills, chest pain, SOB, diarrhea, blood in his stool, or changes in sensation or strength. 10/31/18 21:51 Past History - Past Medical History Allergies/Adverse Reactions: Allergies Allergy/AdvReac Type Severity Reaction Status Date / Time No Known Allergies Allergy Verified 10/31/18 21:14 Home Medications: Ambulatory Orders Aspirin [ASA -] 325 mg PO DAILY 01/18/17 Glipizide [Glipizide ER] 5 mg PO BID 01/18/17 Lisinopril [Prinivil] 20 mg PO DAILY 01/18/17 Metformin HCl [Metformin HCl ER] 500 mg PO BID 01/18/17 Metoprolol Succinate [Toprol Xl] 12.5 mg PO DAILY 01/18/17 Pravastatin Sodium [Pravachol (Nf)] 20 mg PO DAILY 10/31/18 Anemia: No Asthma: No Cancer: No Cardiac Disorders: No CVA: 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) COPD: No CHF: No Dementia: No Diabetes: Yes (niddm) GI Disorders: No Disorders: No HTN: Yes Hypercholesterolemia: Yes Liver Disease: No Seizures: No Thyroid Disease: No - Surgical History Abdominal Surgery: No Appendectomy: No Cardiac Surgery: No Cholecystectomy: No Lung Surgery: No Neurologic Surgery: No Orthopedic Surgery: No - Suicide/Smoking/Psychosocial Hx Smoking Status: Yes Smoking History: Never smoked Have you smoked in the past 12 months: No Number of Cigarettes Smoked Daily: 0 If you are a former smoker, when did you quit?: 1988 Cigars Per Day: 1 Information on smoking cessation initiated: No 'Breaking Loose' booklet given: 01/18/17 Hx Alcohol Use: No Drug/Substance Use Hx: No Substance Use Type: None Hx Substance Use Treatment: No Review of Systems - Review of Systems Able to Perform ROS?: Yes Comments:: GENERAL/CONSTITUTIONAL: No fever or chills HEAD, EYES, EARS, NOSE AND THROAT: No change in vision. No ear pain or discharge. No sore throat CARDIOVASCULAR: No chest pain or shortness of breath RESPIRATORY: Denies cough, hemoptysis GASTROINTESTINAL: No diarrhea or constipation MUSCULOSKELETAL: No joint or muscle swelling or pain. No neck pain SKIN: No rash NEUROLOGIC: No headache, vertigo, loss of consciousness, or change in strength/ sensation ENDOCRINE: No increased thirst. No abnormal weight change HEMATOLOGIC/LYMPHATIC: No anemia, easy bleeding, or history of blood clots ALLERGIC/IMMUNOLOGIC: No hives or skin allergy 10/31/18 21:50 Is the patient limited Wolof proficient: No *Physical Exam - Vital Signs Last Vital Signs Temp Pulse Resp BP Pulse Ox 98.1 F 90 20 155/98 98 10/31/18 20:54 10/31/18 20:54 10/31/18 20:54 10/31/18 20:54 10/31/18 20:54 - Physical Exam Comments: GENERAL: Awake, alert, and oriented to person/place/time, in no acute distress HEAD: No signs of trauma, normocephalic, atraumatic EYES: PERRLA, EOMI, sclera anicteric, conjunctiva clear ENT: Hearing grossly normal, nares patent, oropharynx clear without exudates. Moist mucosa LUNGS: No distress, speaks full sentences, clear to auscultation bilaterally HEART: Regular rate and rhythm, normal S1 and S2, no murmurs appreciated, peripheral pulses normal and equal bilaterally ABDOMEN: Soft, protuberant, NTTP, normoactive bowel sounds. No guarding, no rebound. Mild L CVA TTP EXTREMITIES: Normal inspection, Normal range of motion, no edema. No clubbing or cyanosis NEUROLOGICAL: Cranial nerves II through XII grossly intact. Normal speech, no focal sensorimotor deficits SKIN: Warm, Dry 10/31/18 21:57 ED Treatment Course - LABORATORY CBC & Chemistry Diagram: 11/01/18 00:24 10/31/18 21:51 Medical Decision Making - Medical Decision Making The pt is a 77 w/ a history of HTN, T2DM, and kidney stones who presents w/ 2 days of L flank pain likely 2/2 to nephrolithiasis. ED Course CMP UA, UCx Toradol 15mg IV once for pain 10/31/18 21:57 UA w/ trace blood, no evidence of UTI 10/31/18 22:57 Cr 1.4, at baseline Hyperglycemia, no AG 10/31/18 23:22 Hyperkalemia to 5.8 -Will give 1amp D50 and 10u Insulin Will obtain CT spiral to evaluate for obstructing stone Will give additional Toradol 15mg IV once for pain 10/31/18 23:22 I have transferred care of the patient to Dr. Wise and discussed the clinical presentation, work-up and ED course thus far. *DC/Admit/Observation/Transfer Diagnosis at time of Disposition: Nephrolithiasis, Kidney stone on left side - Discharge Dispostion Disposition: HOME Condition at time of disposition: Stable Decision to Admit order: No - Referrals - Patient Instructions Printed Discharge Instructions: DI for Kidney Stones Additional Instructions: You were evaluated in the ED for L flank pain. CT of your abdomen showed no obstructing kidney stone. You are now stable to be discharged home and follow up with your urologist as outpatient. - Post Discharge Activity
[2018-10-31] MEDS ORDERED: KETOROLAC TROMETHAMINE 15 MG/ML VIAL ONE ×2 (22:00→23:31)
[2018-10-31 22:46] LABS: PH,URINE 5.5 (5.0-8.0); URINE APPEARANCE Clear; URINE BILIRUBIN Negative (NEGATIVE); URINE COLOR Yellow; URINE GLUCOSE (UA) 3+ (NEGATIVE); URINE KETONE Trace (NEGATIVE); URINE LEUK ESTERASE Negative (NEGATIVE); URINE NITRITE Negative (NEGATIVE); URINE PROTEIN 1+ (NEGATIVE); URINE UROBILINOGEN 0.2 mg/dL (0.2-1.0)
[2018-10-31 23:06] LABS: ALBUMIN 3.3 g/dl (3.4-5.0); ALK PHOS 124 U/L (45-117); ANION GAP 7 MMOL/L (8-16); BILIRUBIN,TOTAL 0.5 mg/dL (0.2-1); BLOOD UREA NITROGEN 21 mg/dL (7-18); CHLORIDE 107 mmol/L (98-107); CO2 24 mmol/L (21-32); CREATININE 1.4 mg/dL (0.55-1.3); GLUCOSE,RANDOM 291 mg/dL (74-106); POTASSIUM 5.8 mmol/L (3.5-5.1); SGOT/AST 42 U/L (15-37); SGPT/ALT 32 U/L (13-61); SODIUM 138 mmol/L (136-145); TOT PROT 7.2 g/dl (6.4-8.2)
[2018-10-31] MEDS ORDERED: DEXTROSE 50%-WATER - 25 GM/50 ML VIAL IVPUSH ONE (23:31)
[2018-10-31] MEDS ORDERED: INSULIN REGULAR HUMAN 100 UNITS/ML *VIAL IVPUSH ONE (23:34)
[2018-10-31] MEDS ORDERED: DEXTROSE 50%-WATER - 25 GM/50 ML VIAL ONE (23:41)
[2018-10-31] MEDS ORDERED: INSULIN REGULAR HUMAN 100 UNITS/ML *VIAL ONE (23:44)
--- NOTE | 2018-11-01 00:10 | PDOC ---
*Physical Exam - Vital Signs Last Vital Signs Temp Pulse Resp BP Pulse Ox 98.1 F 90 20 155/98 98 10/31/18 20:54 10/31/18 20:54 10/31/18 20:54 10/31/18 20:54 10/31/18 21:41 - Physical Exam Comments: 11/01/18 01:[address] negative for obstructing stone or hydronephrosis Will repeat bmp to trend K+ ED Treatment Course - LABORATORY CBC & Chemistry Diagram: 11/01/18 00:24 10/31/18 21:51 - ADDITIONAL ORDERS Additional order review: Laboratory Results 10/31/18 10/31/18 22:30 21:51 Sodium 138 Potassium 5.8 H Chloride 107 Carbon Dioxide 24 Anion Gap 7 L BUN 21 H Creatinine 1.4 H Creat Clearance w eGFR 49.27 Random Glucose 291 H Calcium 9.0 Total Bilirubin 0.5 AST 42 H ALT 32 Alkaline Phosphatase 124 H Total Protein 7.2 Albumin 3.3 L Urine Color Yellow Urine Appearance Clear Urine pH 5.5 Ur Specific [place] 1.015 Urine Protein 1+ H Urine Glucose (UA) 3+ H Urine Ketones Trace Urine Blood Trace-intact Urine Nitrite Negative Urine Bilirubin Negative Urine Urobilinogen 0.2 Ur Leukocyte Esterase Negative Urine WBC (Auto) 1-3 10/31/18 20:21 RBC Cancelled MCV Cancelled MCHC Cancelled RDW Cancelled MPV Cancelled - Medications Given in the ED: ED Medications Discontinued Medications Generic Name Dose Route Start Last Admin Trade Name Elsi PRN Reason Stop Dose Admin Dextrose 25 gm 10/31/18 23:31 11/01/18 00:04 D50w (Vial) - IVPUSH 10/31/18 23:32 25 gm NOW ONE Administration Insulin Human Regular 10 units 10/31/18 23:34 11/01/18 00:03 Novolin R Vial *For Ivpush Or Iv Drip Only* IVPUSH 10/31/18 23:35 10 units ONCE ONE Administration Ketorolac Tromethamine 15 mg 10/31/18 21:51 10/31/18 22:30 Toradol Injection - IVPUSH 10/31/18 21:52 15 mg ONCE ONE Administration Ketorolac Tromethamine 15 mg 10/31/18 23:23 10/31/18 23:35 Toradol Injection - IVPUSH 10/31/18 23:24 15 mg ONCE ONE Administration *DC/Admit/Observation/Transfer Diagnosis at time of Disposition: Nephrolithiasis, Kidney stone on left side - Discharge Dispostion Disposition: HOME Condition at time of disposition: Stable - Referrals - Patient Instructions Printed Discharge Instructions: DI for Kidney Stones Additional Instructions: You were evaluated in the ED for L flank pain. CT of your abdomen showed no obstructing kidney stone. You are now stable to be discharged home and follow up with your urologist as outpatient. - Post Discharge Activity
--- NOTE | 2018-11-01 00:23 | PDOC ---
Attending Attestation - HPI HPI: 11/01/18 00:26 Patient is a 77 YOM with a PMH of HTN, DM, kidney stones, and left staghorn calculus removal who presents with intermittent, left lower back pain. Patient states he has had kidney stones in the past and notes this feels similar. Patient took Tylenol at home with minimal relief. Denies cp, sob, diarrhea, constipation, dysuria, urgency, frequency, hematuria, fever, chills. Allergies: NKDA <Shruthi Retana - Last Filed: 11/01/18 00:26> - Resident Resident Name: Maco Pineda - ED Attending Attestation I have performed the following: I have examined & evaluated the patient, The case was reviewed & discussed with the resident, I agree w/resident's findings & plan, Exceptions are as noted - Physicial Exam PE: 11/01/18 00:31 obese 77 yo male p/w left flank pain that radiates to his groin ,associated symptoms of nausea head ncat neck supple lungs cta b/l cvs [id number] abd protuberant,soft Left CVA tenderness ext no erythema,no deformities skin warm and dry neuro axox3,ambulatory 11/01/18 00:38 - Medical Decision Making 11/01/18 01:05 ct scan pending to r/o kidney stones 11/01/18 01:15 ct scan spiral: no hydronephrosis, no obstructing stones <Mraía Christensen - Last Filed: 11/01/18 01:16>
[2018-11-01 00:33] LABS: EOS % 1.9 % (0-4.5); HEMATOCRIT 39.7 % (35.4-49); HEMOGLOBIN 13.5 GM/dL (11.7-16.9); LYMPH % 15.8 % (8-40); MCH 30.6 pg (25.7-33.7); MCHC 33.9 g/dl (32.0-35.9); MEAN CELL VOLUME 90.3 fl (80-96); MEAN PLT VOLUME 8.3 fl (7.5-11.1); MONO % 3.7 % (3.8-10.2); NEUT % 77.6 % (42.8-82.8); PLATELET COUNT 202 K/MM3 (134-434); RDW 13.8 % (11.9-15.9); WHITE BLOOD COUNT 10.4 K/mm3 (4.0-10.0)
[2018-11-01] MEDS ORDERED: morphine CARPU-JECT 2 MG/1 ML DISP.SYRIN IVPUSH ONE (01:44)
[2018-11-01] MEDS ORDERED: SODIUM CHLORIDE 1,000 ML IV STA (01:45)
[2018-11-01 03:09] VITALS: BP 143/75; PULSE 70
== END 2018-11-01 03:33 | disposition home or self-care (01) ==
LOC: JER 20:54
PROC: 3E0337Z Introduction of Electrolytic and Water Balance Substance into Peripheral Vein, Percutaneous Approach (ICD-10-PCS; principal; 2018-10-31)
PROC: 3E0333Z Introduction of Anti-inflammatory into Peripheral Vein, Percutaneous Approach (ICD-10-PCS; 2018-10-31)
PROC: 3E0333Z Introduction of Anti-inflammatory into Peripheral Vein, Percutaneous Approach (ICD-10-PCS; 2018-10-31)
PROC: 3E033VG Introduction of Insulin into Peripheral Vein, Percutaneous Approach (ICD-10-PCS; 2018-10-31)
PROC: 3E033GC Introduction of Other Therapeutic Substance into Peripheral Vein, Percutaneous Approach (ICD-10-PCS; 2018-10-31)
DX: N20.0 Calculus of kidney (principal); Z87.442 Personal history of urinary calculi; I10 Essential (primary) hypertension; E78.00 Pure hypercholesterolemia, unspecified; E11.65 Type 2 diabetes mellitus with hyperglycemia; Z79.84 Long term (current) use of oral hypoglycemic drugs; E87.5 Hyperkalemia
CPT/HCPCS: 36415; 74176-TC; 80053; 81003; 85025; 87086; 96361; 96374; 96375; 96376; 99282-25; J7030

== ENCOUNTER 2021-07-07 12:12 | Emergency (ER) | payer OTHER, BC ==
[2021-07-07 13:15] VITALS: BP 127/73; PULSE 109; TEMP 98.3; BMI 38.2
== END 2021-07-07 16:12 | disposition home or self-care (01) ==
LOC: JER 12:12
DX: M25.562 Pain in left knee (principal)
CPT/HCPCS: 73562-TC-LT-FY; 99283-25

== ENCOUNTER 2023-10-08 04:49 | Day surgery (SDC) | payer OTHER, BC ==
[2023-10-06 12:31] VITALS: BMI 34.1
[2023-10-08 12:00] VITALS: TEMP 98.5
[2023-10-08 12:47] VITALS: BP 142/92; PULSE 78; RESP 18
== END 2023-10-08 12:58 | disposition home or self-care (01) ==
LOC: JASU-ENDO 04:49
PROVIDERS: ATTEND Internal Medicine Gastroenterology
PROC: 0DBL8ZX Excision of Transverse Colon, Via Natural or Artificial Opening Endoscopic, Diagnostic (ICD-10-PCS; 2023-10-08)
PROC: 0DBN8ZX Excision of Sigmoid Colon, Via Natural or Artificial Opening Endoscopic, Diagnostic (ICD-10-PCS; 2023-10-08)
PROC: 0DBM8ZX Excision of Descending Colon, Via Natural or Artificial Opening Endoscopic, Diagnostic (ICD-10-PCS; 2023-10-08)
PROC: 0DBH8ZX Excision of Cecum, Via Natural or Artificial Opening Endoscopic, Diagnostic (ICD-10-PCS; 2023-10-08)
PROC: 0DBL8ZX Excision of Transverse Colon, Via Natural or Artificial Opening Endoscopic, Diagnostic (ICD-10-PCS; 2023-10-08)
PROC: 0DBK8ZX Excision of Ascending Colon, Via Natural or Artificial Opening Endoscopic, Diagnostic (ICD-10-PCS; principal; 2023-10-08 11:00)
DX: Z12.11 Encounter for screening for malignant neoplasm of colon (principal); D12.0 Benign neoplasm of cecum; D12.2 Benign neoplasm of ascending colon; D12.3 Benign neoplasm of transverse colon; D12.4 Benign neoplasm of descending colon; D12.5 Benign neoplasm of sigmoid colon; K57.30 Diverticulosis of large intestine without perforation or abscess without bleeding; K64.8 Other hemorrhoids; Z86.010 Personal history of colon polyps; I10 Essential (primary) hypertension; E11.9 Type 2 diabetes mellitus without complications; Z79.84 Long term (current) use of oral hypoglycemic drugs
CPT/HCPCS: 82962; 88305-TC

== ENCOUNTER 2023-11-26 10:31 | Inpatient (IN) | payer OTHER, BC ==
[2023-11-26 12:23] LABS: BASO % 0.5 % (0-2.0); EOS % 2.6 % (0-4.5); HEMATOCRIT 38.6 % (35.4-49); HEMOGLOBIN 13.1 GM/dL (11.7-16.9); LYMPH % 13.1 % (8-40); MCHC 33.8 g/dl (32.0-35.9); MEAN CELL VOLUME 88.8 fl (80-96); MEAN PLT VOLUME 8.4 fl (7.5-11.1); MONO % 6.9 % (3.8-10.2); NEUT % 76.9 % (42.8-82.8); PLATELET COUNT 272 10^3/uL (134-434); RBC 4.35 M/mm3 (4.00-5.60); RDW 15.5 % (11.9-15.9); WHITE BLOOD COUNT 10.8 K/mm3 (4.0-10.0)
[2023-11-26 12:25] LABS: INR 1.32 (0.83-1.09); PROTHROMBIN TIME (PATIENT) 14.8 SEC (9.7-13.0)
[2023-11-26 12:26] LABS: EPI CELLS 22 /uL (0-25.1); HYALINE CASTS 1 /uL (0-3.1); PH,URINE 5.5 (5.0-8.0); URINE APPEARANCE TURBID; URINE BACTERIA 99 /uL (0-1359); URINE BILIRUBIN 1+ (NEGATIVE); URINE COLOR DK YELLOW; URINE GLUCOSE (UA) NEGATIVE (NEGATIVE); URINE KETONE NEGATIVE (NEGATIVE); URINE LEUK ESTERASE 3+ (NEGATIVE); URINE NITRITE NEGATIVE (NEGATIVE); URINE PROTEIN 2+ (NEGATIVE); URINE WBC 18564 /uL (0-25.8)
[2023-11-26 12:28] LABS: ACTIVATED PTT 39.9 SECONDS (25.2-36.5)
[2023-11-26 12:39] LABS: POTASSIUM 4.1 mmol/L (3.5-5.1)
[2023-11-26] MEDS ORDERED: ONDANSETRON 4 MG/2 ML VIAL ONE (12:40)
[2023-11-26 12:41] LABS: BLOOD UREA NITROGEN 67.4 mg/dL (7-18); MAGNESIUM 2.6 mg/dL (1.8-2.4)
[2023-11-26 12:44] LABS: CREATININE 3.4 mg/dL (0.55-1.3)
[2023-11-26 12:46] LABS: BILIRUBIN,TOTAL 3.1 mg/dL (0.2-1)
[2023-11-26 12:49] LABS: TOT PROT 6.2 g/dl (6.4-8.2)
[2023-11-26 13:01] LABS: LACTIC ACID 2.2 mmol/L (0.4-2.0)
[2023-11-26 13:08] LABS: URINE RBC 309.3 /uL (0-23.9); YEAST NEGATIVE (NEGATIVE)
[2023-11-26] MEDS ORDERED: CEFTRIAXONE 1 GM/50 ML BAG ONE (13:24)
[2023-11-26] MEDS: CEFTRIAXONE 1 GM in DEXTROSE 5%-WATER - 100 ML IVPB ONE (13:36)
[2023-11-26] MEDS: ONDANSETRON 4 MG/2 ML VIAL IVPUSH ONE (13:36)
[2023-11-26] MEDS ORDERED: FAMOTIDINE 20 MG/50 ML IVPB 20 MG/50 ML MG IVPB ONE (14:30)
[2023-11-26] MEDS ORDERED: ASPIRIN 81 MG CHEWABLE TABLETS ONE (14:30)
[2023-11-26] MEDS: ASPIRIN 81 MG CHEWABLE TABLETS PO ONE (14:40)
[2023-11-26] MEDS: FAMOTIDINE 20 MG/50 ML IVPB 20 MG/50 ML MG IVPB ONE (14:40)
[2023-11-26 15:02] LABS: POTASSIUM 3.5 mmol/L (3.5-5.1)
[2023-11-26 15:04] LABS: CALCIUM 9.5 mg/dL (8.5-10.1)
[2023-11-26 15:08] LABS: CREATININE 3.3 mg/dL (0.55-1.3)
[2023-11-26 15:10] LABS: BILIRUBIN,TOTAL 2.8 mg/dL (0.2-1); TOT PROT 5.9 g/dl (6.4-8.2)
[2023-11-26] MEDS ORDERED: POTASSIUM CHLORIDE ORAL LIQUID 20 MEQ/15 ML ONE (19:45)
[2023-11-26] MEDS: DEXTROSE 5%-0.45% SALINE 1,000 ML IV SCH (20:04)
[2023-11-26] MEDS: POTASSIUM CHLORIDE ORAL LIQUID 20 MEQ/15 ML PO ONE (20:04)
[2023-11-26] MEDS: INSULIN ASPART SLIDING SCALE (NOVOLOG) 1 VIAL SQ SCH (22:24)
[2023-11-26] MEDS: ATORVASTATIN CA 40 MG TABLET (FP) PO SCH (22:27)
[2023-11-26] MEDS: amLODIPine BESYLATE 5 MG TABLET (FP) PO SCH (22:27)
[2023-11-26] MEDS: POLYETHYLENE GLYCOL (HEALTHYLAX) 3350 17 GM PACKET PO SCH (22:27)
[2023-11-26] MEDS: HEPARIN NA (PORCINE) 5,000 UNITS/ML 1ML VIAL SQ SCH (22:27)
[2023-11-26 23:51] VITALS: BMI 33.3
[2023-11-27] MEDS: DEXTROSE 50%-WATER 25 GM/50 ML DISP.SYRIN IVPUSH ONE (00:48)
[2023-11-27] MEDS: DEXTROSE 50%-WATER - 25 GM/50 ML VIAL IVPUSH ONE (01:46)
[2023-11-27 08:20] LABS: BASO % 0.5 % (0-2.0); EOS % 3.3 % (0-4.5); HEMATOCRIT 35.6 % (35.4-49); LYMPH % 13.2 % (8-40); MCH 29.7 pg (25.7-33.7); MCHC 33.7 g/dl (32.0-35.9); MEAN CELL VOLUME 88.1 fl (80-96); MEAN PLT VOLUME 8.4 fl (7.5-11.1); MONO % 8.2 % (3.8-10.2); NEUT % 74.8 % (42.8-82.8); PLATELET COUNT 268 10^3/uL (134-434); RBC 4.05 M/mm3 (4.00-5.60); RDW 15.7 % (11.9-15.9); WHITE BLOOD COUNT 12.6 K/mm3 (4.0-10.0)
[2023-11-27 08:42] LABS: POTASSIUM 4.1 mmol/L (3.5-5.1)
[2023-11-27 09:05] LABS: BLOOD UREA NITROGEN 64.8 mg/dL (7-18); CALCIUM 9.4 mg/dL (8.5-10.1); MAGNESIUM 2.5 mg/dL (1.8-2.4)
[2023-11-27 09:07] LABS: PHOSPHOROUS 3.8 mg/dL (2.5-4.9)
[2023-11-27 09:08] LABS: BILIRUBIN,TOTAL 2.5 mg/dL (0.2-1); TOT PROT 5.9 g/dl (6.4-8.2)
[2023-11-27] MEDS: EZETIMIBE 10 MG TABLET (FP) PO SCH (10:19)
[2023-11-27] MEDS: metoPROLOL SUCCINATE 25 MG TAB.SR.24H (FP) PO SCH (10:45)
[2023-11-27] MEDS: CEFTRIAXONE 1 GM in DEXTROSE 5%-WATER - 50 ML IVPB SCH (10:47)
[2023-11-27] MEDS ORDERED: INSULIN (NOVOLOG) ASPART 100 UNITS/ML 10ML VIAL ONE (21:35)
[2023-11-28] MEDS: HALOPERIDOL LACTATE 5 MG/ML IM ONE (05:00)
[2023-11-28 07:18] LABS: POTASSIUM 3.7 mmol/L (3.5-5.1)
[2023-11-28 07:26] LABS: ALBUMIN 2.1 g/dl (3.4-5.0); CALCIUM 9.2 mg/dL (8.5-10.1)
[2023-11-28 07:27] LABS: BLOOD UREA NITROGEN 62.6 mg/dL (7-18); MAGNESIUM 2.3 mg/dL (1.8-2.4)
[2023-11-28 07:30] LABS: BILIRUBIN,TOTAL 2.5 mg/dL (0.2-1); TOT PROT 6.3 g/dl (6.4-8.2)
[2023-11-28 07:33] LABS: BASO % 0.4 % (0-2.0); EOS % 2.3 % (0-4.5); HEMATOCRIT 37.6 % (35.4-49); HEMOGLOBIN 12.5 GM/dL (11.7-16.9); LYMPH % 13.8 % (8-40); MCH 29.8 pg (25.7-33.7); MCHC 33.2 g/dl (32.0-35.9); MEAN CELL VOLUME 89.9 fl (80-96); MEAN PLT VOLUME 8.6 fl (7.5-11.1); MONO % 6.5 % (3.8-10.2); PLATELET COUNT 268 10^3/uL (134-434); RBC 4.19 M/mm3 (4.00-5.60); RDW 15.6 % (11.9-15.9); WHITE BLOOD COUNT 13.7 K/mm3 (4.0-10.0)
[2023-11-28] MEDS: ASPIRIN COATED 81 MG TABLET.EC PO SCH (10:22)
[2023-11-28] MEDS ORDERED: INSULIN (NOVOLOG) ASPART 100 UNITS/ML 10ML VIAL ONE (21:21)
[2023-11-28] MEDS: amLODIPine BESYLATE 10 MG TABLET (FP) PO SCH (21:51)
[2023-11-29 07:32] LABS: BASO % 0.4 % (0-2.0); EOS % 1.3 % (0-4.5); HEMATOCRIT 36.7 % (35.4-49); HEMOGLOBIN 12.1 GM/dL (11.7-16.9); LYMPH % 10.8 % (8-40); MCH 29.4 pg (25.7-33.7); MCHC 32.8 g/dl (32.0-35.9); MEAN CELL VOLUME 89.5 fl (80-96); MEAN PLT VOLUME 8.7 fl (7.5-11.1); MONO % 6.4 % (3.8-10.2); NEUT % 81.1 % (42.8-82.8); PLATELET COUNT 259 10^3/uL (134-434); RDW 15.5 % (11.9-15.9); WHITE BLOOD COUNT 16.6 K/mm3 (4.0-10.0)
[2023-11-29 07:50] LABS: POTASSIUM 4.2 mmol/L (3.5-5.1)
[2023-11-29 07:52] LABS: CALCIUM 9.3 mg/dL (8.5-10.1)
[2023-11-29 07:56] LABS: CREATININE 2.8 mg/dL (0.55-1.3); PHOSPHOROUS 4.3 mg/dL (2.5-4.9)
[2023-11-29 07:58] LABS: ALBUMIN 2.2 g/dl (3.4-5.0)
[2023-11-29 08:02] LABS: BILIRUBIN,TOTAL 2.4 mg/dL (0.2-1); TOT PROT 6.5 g/dl (6.4-8.2)
[2023-11-29] MEDS: INSULIN (LEVEMIR) 100 UNITS/ML UNITS SQ ONE (09:36)
[2023-11-29] MEDS: MELATONIN 5 MG TABLETS PO SCH (21:35)
[2023-11-30 07:28] LABS: BASO % 0.5 % (0-2.0); EOS % 3.1 % (0-4.5); HEMATOCRIT 35.7 % (35.4-49); HEMOGLOBIN 11.7 GM/dL (11.7-16.9); LYMPH % 11.6 % (8-40); MCH 29.5 pg (25.7-33.7); MCHC 32.8 g/dl (32.0-35.9); MEAN PLT VOLUME 8.7 fl (7.5-11.1); MONO % 6.3 % (3.8-10.2); NEUT % 78.5 % (42.8-82.8); PLATELET COUNT 238 10^3/uL (134-434); RBC 3.97 M/mm3 (4.00-5.60); RDW 15.6 % (11.9-15.9); WHITE BLOOD COUNT 15.9 K/mm3 (4.0-10.0)
[2023-11-30 07:36] LABS: POTASSIUM 4.2 mmol/L (3.5-5.1)
[2023-11-30 07:51] LABS: ALBUMIN 2.2 g/dl (3.4-5.0); BLOOD UREA NITROGEN 57.1 mg/dL (7-18); CALCIUM 9.3 mg/dL (8.5-10.1); MAGNESIUM 2.4 mg/dL (1.8-2.4)
[2023-11-30 07:54] LABS: CREATININE 2.7 mg/dL (0.55-1.3)
[2023-11-30 07:56] LABS: BILIRUBIN,TOTAL 2.4 mg/dL (0.2-1); TOT PROT 6.2 g/dl (6.4-8.2)
[2023-11-30] MEDS ORDERED: INSULIN (NOVOLOG) ASPART 100 UNITS/ML 10ML VIAL ONE (16:48)
[2023-11-30] MEDS: DEXTROSE 5%-0.45% SALINE 1,000 ML IV SCH (16:50)
[2023-11-30] MEDS: INSULIN ASPART SLIDING SCALE (NOVOLOG) 1 VIAL SQ SCH (16:52)
[2023-11-30] MEDS: amLODIPine BESYLATE 10 MG TABLET (FP) PO SCH (21:41)
[2023-11-30] MEDS: ATORVASTATIN CA 40 MG TABLET (FP) PO SCH (21:41)
[2023-11-30] MEDS: POLYETHYLENE GLYCOL (HEALTHYLAX) 3350 17 GM PACKET PO SCH (21:41)
[2023-11-30] MEDS: HEPARIN NA (PORCINE) 5,000 UNITS/ML 1ML VIAL SQ SCH (21:47)
[2023-12-01] MEDS: ASPIRIN COATED 81 MG TABLET.EC PO SCH (09:32)
[2023-12-01] MEDS: metoPROLOL SUCCINATE 25 MG TAB.SR.24H (FP) PO SCH (09:32)
[2023-12-01] MEDS: EZETIMIBE 10 MG TABLET (FP) PO SCH (09:32)
[2023-12-01] MEDS: CEFTRIAXONE 1 GM in DEXTROSE 5%-WATER - 50 ML IVPB SCH (09:33)
[2023-12-01 09:54] LABS: BASO % 0.6 % (0-2.0); EOS % 4.1 % (0-4.5); HEMATOCRIT 35.6 % (35.4-49); HEMOGLOBIN 11.5 GM/dL (11.7-16.9); LYMPH % 16.5 % (8-40); MCH 29.2 pg (25.7-33.7); MCHC 32.2 g/dl (32.0-35.9); MEAN CELL VOLUME 90.6 fl (80-96); MEAN PLT VOLUME 9.1 fl (7.5-11.1); MONO % 5.9 % (3.8-10.2); NEUT % 72.9 % (42.8-82.8); PLATELET COUNT 231 10^3/uL (134-434); RBC 3.93 M/mm3 (4.00-5.60); RDW 15.8 % (11.9-15.9); WHITE BLOOD COUNT 11.6 K/mm3 (4.0-10.0)
[2023-12-01 10:07] LABS: POTASSIUM 4.4 mmol/L (3.5-5.1)
[2023-12-01 10:10] LABS: CALCIUM 9.4 mg/dL (8.5-10.1)
[2023-12-01 10:11] LABS: ALBUMIN 2.1 g/dl (3.4-5.0); MAGNESIUM 2.2 mg/dL (1.8-2.4)
[2023-12-01 10:14] LABS: CREATININE 2.3 mg/dL (0.55-1.3); PHOSPHOROUS 4.1 mg/dL (2.5-4.9)
[2023-12-01 10:15] LABS: TOT PROT 6.2 g/dl (6.4-8.2)
[2023-12-01 10:16] LABS: BILIRUBIN,TOTAL 1.6 mg/dL (0.2-1)
[2023-12-01] MEDS ORDERED: INSULIN (NOVOLOG) ASPART 100 UNITS/ML 10ML VIAL ONE ×2 (11:09→16:45)
[2023-12-01 13:53] VITALS: BP 130/66; TEMP 98.1
[2023-12-01 15:46] VITALS: PULSE 76; RESP 18
[2023-12-02] MEDS ORDERED: PANTOPRAZOLE 40 MG TABLET PO SCH (10:00)
== END 2023-12-01 18:21 | DRG 690 ==
LOC: JER 10:31 → JERBED 16:17 → J4W 21:05 → J8W 11-30 14:22
PROVIDERS: ADMIT Internal Medicine; ATTEND Nurse Practitioner Acute Care
DX: N39.0 Urinary tract infection, site not specified (principal); I24.89 Other forms of acute ischemic heart disease; N17.9 Acute kidney failure, unspecified; I25.10 Atherosclerotic heart disease of native coronary artery without angina pectoris; I12.9 Hypertensive chronic kidney disease with stage 1 through stage 4 chronic kidney disease, or unspecified chronic kidney disease; E11.22 Type 2 diabetes mellitus with diabetic chronic kidney disease; I44.0 Atrioventricular block, first degree; N20.0 Calculus of kidney; N40.0 Benign prostatic hyperplasia without lower urinary tract symptoms; K13.21 Leukoplakia of oral mucosa, including tongue; N18.30 Chronic kidney disease, stage 3 unspecified; R74.01 Elevation of levels of liver transaminase levels; Z79.84 Long term (current) use of oral hypoglycemic drugs; R79.89 Other specified abnormal findings of blood chemistry
CPT/HCPCS: 36415; 70450-TC; 71045-TC-FY; 72125-TC; 74176-TC; 76705-TC; 80048; 80053; 80076; 81003; 82140; 82248; 82550; 82962; 82977; 83605; 83690; 83735; 84100; 84484; 85025; 85610; 85730; 86704; 86705; 86708; 86803; 87086; 87340; 87517; 87635; 93005; 93010; 93306-TC; 97116-GP; 97161-GP; 99285-25; J1644

== ENCOUNTER 2024-06-30 22:59 | Emergency (ER) | payer OTHER, BC ==
[2024-06-30 23:10] VITALS: BP 134/76; PULSE 100; RESP 18; TEMP 98.7; BMI 35.0
[2024-07-01] MEDS ORDERED: PHENAZOPYRIDINE HCL 100 MG TABLET (FP) PO SCH ×2 (00:20→09:00)
[2024-07-01] MEDS ORDERED: PHENAZOPYRIDINE HCL 100 MG TABLET (FP) ONE (00:21)
[2024-07-01 01:29] LABS: EPI CELLS 8 /uL (0-25.1); HYALINE CASTS 0 /uL (0-3.1); PH,URINE 5.5 (5.0-8.0); URINE APPEARANCE CLEAR; URINE BACTERIA 5 /uL (0-1359); URINE BILIRUBIN NEGATIVE (NEGATIVE); URINE COLOR YELLOW; URINE GLUCOSE (UA) NEGATIVE (NEGATIVE); URINE KETONE NEGATIVE (NEGATIVE); URINE LEUK ESTERASE TRACE (NEGATIVE); URINE NITRITE NEGATIVE (NEGATIVE); URINE PROTEIN 2+ (NEGATIVE); URINE RBC 2219 /uL (0-23.9); URINE WBC 108 /uL (0-25.8)
== END 2024-07-01 01:47 | disposition home or self-care (01) ==
LOC: JER 22:59
DX: R33.9 Retention of urine, unspecified (principal); R30.0 Dysuria
CPT/HCPCS: 81003; 87086; 99283-25